=== PATIENT | male | born 1945 | race Caucasian/White ===

== ENCOUNTER 2022-03-10 07:23 | Outpatient (CLI) | payer MEDICARE, SELFPAY ==
--- NOTE | ~2022-03-10 | US_ITS ---
EXAMINATION: US aorta [facility] DATE: 03/10/2022 07:58 INDICATION: Abdominal aortic aneurysm screening, history of hypertension, obesity, hypercholesterolem ia, and prior tobacco use TECHNIQUE: Grayscale, color Doppler, and pulsed Doppler images of the aorta and common iliac arteries were obtained. COMPARISON: None. 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 IMPRESSION: 1. 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 Reviewed, dictated and finalized at location A.
== END 2022-03-10 07:24 | disposition home or self-care (01) ==
PROVIDERS: PCP Family Medicine; Visit Provider Family Medicine
DX: Z13.6 Encounter for screening for cardiovascular disorders (principal); I71.4 Abdominal aortic aneurysm, without rupture
CPT/HCPCS: 76706

== ENCOUNTER 2022-04-14 13:28 | Outpatient (CLI) | payer MEDICARE, SELFPAY ==
--- NOTE | ~2022-04-14 | CT_ITS ---
EXAMINATION: CT shoulder RT wo con DATE: 04/14/2022 14:12 INDICATION: Other specified arthropathies. The right rotator cuff arthropathy with right shoulder curt n. TECHNIQUE: High resolution computed tomography (CT) of the right shoulder was performed without intra venous contrast. Additional sagittal and coronal reconstructions were performed. Automated exposure c ontrol and iterative reconstruction technique were employed. The dose-length product was 497.21 mGy-c m. COMPARISON: Right shoulder radiographs dated 02/17/2022 FINDINGS: Bone alignment is normal. No fracture. Advanced right glenohumeral osteoarthritis with extensive bone -on-bone apposition with remodeling of the articular cortices and prominent subarticular cystic jay es. There is osteolysis with loss of bone stock at the posterior glenoid resulting in approximately 1 0 degrees secondary glenoid retroversion. Mild right acromioclavicular osteoarthritis. No joint effus ion at the right shoulder. There is curvilinear calcification consistent with calcific tendinitis mendez ng the bursal surface of the distal supraspinatus and infraspinatus tendons and along the articular s katherine of the inferior subscapularis tendon. Narrowing of the subacromial space which measures approxima tely 1.5 mm between the apex of the humeral head and the undersurface of the acromion in the region o f the conjoined portion of the supraspinatus and infraspinatus tendons consistent with at least parti al tear. This likely chronic as there is mild to moderate fatty atrophy of the supraspinatus and infr aspinatus muscle bellies. Visualized portion of the right lung are clear. No pathologically enlarged lymphadenopathy at the right axillary visualized portions of the mediastinum and right hilum. Severe thoracic and lower cervical spondylosis. IMPRESSION: 1. Advanced right glenohumeral osteoarthritis. 2. Rotator cuff calcific tendinitis and at least partial tear with significant narrowing of the subac romial space and region of the conjoined supraspinatus and infraspinatus tendons. Reviewed, dictated and finalized at location A. IMPRESSION: 1. Advanced right glenohumeral osteoarthritis. 2. Rotator cuff calcific tendinitis and at least partial tear with significant narrowing of the subacromial space and region of the conjoined supraspinatus an d infraspinatus tendons.
== END 2022-04-14 13:29 | disposition home or self-care (01) ==
PROVIDERS: PCP Family Medicine; Visit Provider Orthopaedic Surgery
DX: M19.011 Primary osteoarthritis, right shoulder (principal); M75.31 Calcific tendinitis of right shoulder
CPT/HCPCS: 73200

== ENCOUNTER 2022-04-17 08:45 | Outpatient (CLI) | payer MEDICARE, SELFPAY ==
--- NOTE | 2022-04-17 09:49 | ECG_ITS ---
Measurements Intervals [place] Rate: 47 P: [place]: 0 QRS: -64 QRSD: 158 T: -4 QT: 443 QTc: 392 Interpretive Statements SINUS BRADYCARDIA WITH OCCASIONAL PREMATURE SUPRAVENTRICULAR ECTOPIC BEATS MARKED LEFT AXIS DEVIATION [QRS AXIS < -30] RIGHT BUNDLE BRANCH BLOCK [120+ ms QRS DURATION, UPRIGHT V1, 40+ ms S IN I/aVL/V4/V5/V6] NO PREVIOUS ECG AVAILABLE FOR COMPARISON Electronically Signed On 04-17-2022 11:19:57 CDT by Nusrat Jaramillo MD
[2022-04-17 10:09] LABS: Basophils Absolute Auto 0.1 K/mm3 (0.0-0.1); Basophils Percent Auto 0.9 % (0.2-1.2); Eosinophils Absolute Auto 0.5 K/mm3 (0-0.3); Hematocrit 41.1 % (42.0-52.0); Hemoglobin 12.9 g/dL (14.0-18.0); Immature Granulocyte Absolute 0.03 K/mm3 (0.00-0.031); Immature Granulocyte Percent A 0.4 % (0-0.5); Lymphocytes Absolute Auto 1.34 K/mm3 (0.9-3.2); Lymphocytes Percent Auto 17.1 % (18.3-44.2); Mean Corpuscular HGB Conc 31.4 g/dl (32-36); Mean Corpuscular Hemoglobin 30.1 pg (26-34); Mean Corpuscular Volume 95.8 fl (80-100); Mean Platelet Volume 10.7 fl (7.4-10.4); Monocytes Absolute Auto 0.8 K/mm3 (0.1-0.6); Monocytes Percent Auto 9.8 % (2.6-8.5); Neutrophils Absolute Auto 5.2 K/mm3 (1.3-6.7); Neutrophils Percent Auto 65.8 % (45.5-73.1); Platelet Count Result 163 k/mm3 (150-375); Red Blood Count 4.29 M/mm3 (4.6-6.20); Red Cell Distribution Width 13.6 % (11.5-14.5); White Blood Count 7.9 K/mm3 (4.5-10.0)
[2022-04-17 10:23] LABS: Anion Gap 4 mmol/L (8-16); Blood Urea Nitrogen 28 mg/dL (9-20); Calcium 8.7 mg/dL (8.4-10.2); Carbon Dioxide 29 mmol/L (22-30); Chloride 104 mmol/L (98-107); Estimated Glomerular Filt Rate > 60; Glucose 91 mg/dL (65-110); Sodium 137 mmol/L (137-145)
== END 2022-04-17 08:46 | disposition home or self-care (01) ==
LOC: ANHSURGERY 08:50
PROVIDERS: Anesthesiology; PCP Family Medicine; Visit Provider Orthopaedic Surgery
DX: M12.811 Other specific arthropathies, not elsewhere classified, right shoulder (principal); I10 Essential (primary) hypertension; Z01.818 Encounter for other preprocedural examination; I45.10 Unspecified right bundle-branch block
CPT/HCPCS: 36415; 80048; 85025; 87081; 93005

== ENCOUNTER 2022-05-13 00:02 | Day surgery (SDC) | payer MEDICARE, SELFPAY ==
[2022-04-17 09:07] VITALS: BP 133/76; PULSE 50; RESP 16; TEMP 36.3; O2SAT 95; BMI 39.3
--- NOTE | 2022-04-17 09:19 | PC.NURSE ---
Report to the Outpatient Waiting Room, entrance under the green pavilion located off [facility], at time __9:30AM on date __05/13/22 . OR Time: ___11:30AM . - You and your visitor will be asked a series of questions to screen for COVID 19 for your protection. - Only one visitor is allowed at this time. - The patient visitor is requested to leave or wait in car when not with patient. - A mask is required within the hospital. Patients may have clear liquids (water, carbonated beverages, clear teas, apple juice) until 3 hours prior to surgery with a maximum of 20 ounces. - No food from midnight until time of surgery - Infants may have breast milk until 4 hours before surgery, infant formula 6 hours prior to surgery. - Children will be allowed to drink immediately following surgery. If applicable, please bring a bottle or sippy cup to assist with drinking. Juice, water, soda, and popsicles are readily available. For infants on formula, please bring formula the day of surgery. Pacifiers are allowed. Take the following medications with a SIP of water the morning of surgery: __LEVOTHYROXINE, METOPROLOL, TRAMADOL Medications to discontinue per physician _HOLD ALL VITAMINS/SUPPLEMENTS, MELOXICAM, AND ASPIRIN 7 DAYS PRE-OP Date to take last dose____05/06/22 Please no make-up, nail bengali, hairspray, perfume, deodorant, or body powder the day of surgery. No jewelry (including any body piercings) or valuables the day of surgery, leave them at home. Please take a shower or bath the night before, or the morning of, surgery with an antibacterial soap. Wear comfortable, loose fitting clothing. Children are encouraged to wear pajamas. - Jewelry must be removed prior to entering the operating room. Rings and piercings that are not removed may be cut off. - The hospital will not accept responsibility for valuables. - Please leave all valuables, including medications, at home the day of surgery. If you are going home after surgery, a licensed truck driver instructor must drive you home. - NO public transportation without another adult. - We recommend that an adult stay with you for 24 hours following discharge. - We also recommend that you do not drive, make important decision, drink alcoholic beverages, or take any drugs that were not prescribed by your health care provider for at least 24 hours after your discharge time. For Pediatric surgeries, we recommend two adults accompany the child home (only one inside the building at this time). Follow any additional instructions given to you from your surgeon. If you or anyone in your household have experienced Covid symptoms in the past week, please notify your surgeon or the nurse liaison at the phone number below for possible testing. Telephone instructions given to __PATIENT & WIFE and asked if any additional questions and then verbalized understanding. Patient advised to call surgeon office or pre surgery nurse liaison [phone] if any additional questions.
--- NOTE | 2022-05-12 15:06 | WPDANESEPPF ---
Anes - Initial Pre Proc Eval Procedure: Operation Date: 05/13/22 08:30 Proposed Procedures p Right Reverse Total Shoulder Arthroplasty - Toney Su MD Date/Time: 05/12/22 15:06 Surgeon: Toney Su MD Pre Op Diagnosis: Rt Rot Cuff Arthropathy Patient Data Age: 77 Gender: M Height: 1.7 m Weight: 114 kg Last Vital Signs Temp 36.3 C L 04/17/22 09:07 Pulse 50 L 04/17/22 09:07 Resp 16 04/17/22 09:07 BP 133/76 04/17/22 09:07 Pulse Ox 95 04/17/22 09:07 O2 Del Method Room Air 04/17/22 09:07 Allergies Allergy/AdvReac Type Severity Reaction Status Date / Time No Known Allergies Allergy Unknown Verified 04/17/22 08:57 Home Medications Medication Instructions Recorded Confirmed Type atorvastatin 40 mg tablet 40 mg PO DAILY #90 tabs 11/04/21 04/17/22 Rx calcium carbonate 200 mg calcium 1,000 mg PO DAILY 02/17/22 04/17/22 History (500 mg) chewable tablet (Tums) finasteride 5 mg tablet 5 mg PO DAILY 02/17/22 04/17/22 History vitamin A-vit C-vit E-zinc-Cu 1 tablet PO DAILY 02/17/22 04/17/22 History tablet aspirin 81 mg tablet,delayed 81 mg PO DAILY 04/17/22 04/17/22 History release (Adult Low Dose Aspirin) hydrochlorothiazide 25 mg tablet 25 mg PO QAM 04/17/22 04/17/22 History levothyroxine 100 mcg tablet 100 mcg PO QAM 04/17/22 04/17/22 History lisinopril 10 mg tablet 10 mg PO QAM 04/17/22 04/17/22 History meloxicam 15 mg tablet 15 mg PO QAM 04/17/22 04/17/22 History metoprolol succinate 25 mg 25 mg PO QAM 04/17/22 04/17/22 History tablet,extended release 24 hr tramadol 50 mg tablet 50 mg PO BID 04/17/22 04/17/22 History Patient hx anesthesia problems: none Family hx anesthesia problems: none Results Review: All pre-operative results and documents have been reviewed as part of the pre-operative evaluation. [facility] Past Medical History Medical History (Updated 05/12/22 @ 15:07 by Marvel Cordova DO) Acquired hypothyroidism Benign prostatic hyperplasia with lower urinary tract symptoms Chronic, continuous use of opioids tramadol 20 years Essential hypertension Hyperlipidemia Left ear impacted cerumen Obesity Surgical History Surgical History H/O knee surgery both knees 2006 H/O shoulder surgery right shoulder 2015 History of hip surgery right hip 2010 Previous back surgery 2018 Family History Family History Mother Hypertension Father Carcinoma of colon Social History Social History Smoking packs per day: 1 Smoking cigarettes per day: 20.0 Years smoked: 10 Smoking pack-years: 10.00 Smoking status: Former smoker Tobacco type: cigarettes Second hand tobacco smoke exposure: Yes Smoking end date: 05/02/83 Alcohol intake: current Drinks per week: 0 Alcohol use details: FEW DRINKS/YEAR Substance use: never Substance use type: crack/cocaine Living arrangements: with family Additional living arrangements comments: Gender identity (if verbalized by the patient): Male Spiritual care concerns: No Anes - Eval Final PreProcedure Day of Procedure 05/12/22 15:06 Patient weight: obese Heart: regular rate and rhythm Lungs: clear to auscultation Airway: Mallampati scale class II Neurological: alert and oriented Last oral intake: >/= 8 hours ASA classification: III Emergent: no Anesthetic plan: proceed Anesthesia type and monitoring: general ETT and standard monitoring Results Review: All pre-operative results and documents have been reviewed as part of the pre-operative evaluation. Informed Consent: The patient's anesthetic plan and its attendant risks and benefits were discussed with the patient/family/POA. Questions were solicited and answers provided to the satisfaction of the patient/family/POA.
[2022-05-13] VITALS (14 sets, daily range): BP systolic 94–131; BP diastolic 50–77; PULSE 49–64; RESP 12–18; TEMP 36.1–36.7; O2SAT 93–100
--- NOTE | ~2022-05-13 | XR_ITS ---
XR shoulder RT min 2V DATE: 05/13/2022 11:49 INDICATION: Reverse right total shoulder TECHNIQUE: Postoperative portable AP and Neer views COMPARISON: 04/14/2022 CT right shoulder / right shoulder FINDINGS: Status post right reversed, glenohumeral arthroplasty, with normal alignment. No fracture o r dislocation is detected. Widening of the right acromioclavicular joint since 02/17/2022; recommend clinical correlation. Degenerative disc disease and uncovertebral joint spurring in the lower cervical spine. IMPRESSION: Reverse right glenohumeral shoulder arthroplasty Reviewed, dictated and finalized at location A.
[2022-05-13] MEDS: LACTATED RINGERS 1,000 ML 30 ML IV CONT ×2 (06:50→11:40)
[2022-05-13] MEDS: ACETAMINOPHEN 500 MG TABLET 1000 MG PO (06:58)
[2022-05-13] MEDS: TRANEXAMIC ACID 1,000MG/ISO100 1,000 MG/100 ML BAG 200 MG IVPB (06:58)
--- NOTE | 2022-05-13 08:13 | WPDHPUPDATE1 ---
History and Physical Update Update Date/Time: 05/13/22 08:13 History and Physical has been reviewed, including an updated exam of the patient. There are NO changes in the patient's condition. Risks, benefits, and alternatives have been discussed and questions answered. Patient agrees to proceed with procedure.
--- NOTE | 2022-05-13 08:20 | WPDANESPNB ---
Anes - Peripheral Nerve Block Date/Time: 05/13/22 08:20 I have discussed with the patient/family/POA the placement of a peripheral nerve block for post-operative pain management, including associated risks, benefits, complications, and side effects. Alternative methods of post-operative analgesia were detailed. Questions were solicited and answers provided to the satisfaction of the patient/family/POA. Time-Out: A pre-procedural Time-Out was completed immediately before starting the procedure and confirmed: Patient Identification, Site, Procedure, Patient Position and the Availability of Requisite Equipment. Clinical Indications: Acute post-operative pain management requested by the operative surgeon. Nerve Block Insertion Note Anes-nerve block: interscalene right Patient position: supine Skin prep: chlorhexidine Needle: 22 gauge, stimulating, insulated echogenic needle. Needle length: 50 mm Technique: ultrasound Injectate: bupivacaine 0.5% with epi 5 mcg/ml (30cc- no epi) Observations: tolerated well Complications: none Procedure start time:: 813 Procedure end time:: 817
[2022-05-13] MEDS: ceFAZolin 2 GM/D5W 50 ML 2 GM/50 ML BAG IVPB ×3 (08:35→23:45)
[2022-05-13] MEDS: VANCOMYCIN HCL 1,000 MG VIAL 1000 MG TOPICAL (09:19)
--- NOTE | 2022-05-13 13:12 | PC.NURSE ---
This patient, Jaxon Moss, was admitted to Medical Room 251-01. Patient/family oriented to hospital policies and general routines including ID bracelet, bed and alarms, visiting hours, pain management, procedures, bathroom and other care routines, personal items, smoking policy, room service/diet, and visiting hours. Information on how to activate the Rapid Response Team has been discussed. Patient/Family are encouraged to report perceived risks to care and to ask questions if they do not understand what they are told or what they should do.
[2022-05-13] MEDS: SODIUM CHLORIDE 0.9% IV 1,000 ML 125 ML IV CONT (13:35)
--- NOTE | 2022-05-13 15:36 | W.PM.PROC2 ---
Procedure Note - Detailed Date of Procedure 05/13/22 Pre-op Diagnosis Right shoulder rotator cuff arthropathy Post-op Diagnosis Same Procedure Performed Reverse total shoulder arthroplasty, right. Surgeon Toney Su MD Anesthesia General and Regional (Interscalene block.) Findings Extensive disease with erosion of the glenoid medially and posteriorly approximately 18?. Significant stiffness and scarring from previous open rotator cuff surgery. Subdeltoid adhesions were extensive. Bone quality was excellent. Posterior capsule excised. Calcified glenoid (particularly anterior) removed. Description of Procedure The patient was given an interscalene block in the preoperative area. Preoperative antibiotics were given. The patient was transferred to the operating room and a general anesthetic was administered. The beach chair position was used at 45 degrees. All bony prominences were padded. The head was carefully stabilized on the [facility] school cafeteria head cook. A sterile prep and drape was performed in the usual manner with ChloraPrep. A longitudinal incision was created at the anterior shoulder just lateral to the deltopectoral interval. Hydrogen peroxide was placed on the incision and then rinsed after one minute. Careful dissection was performed to expose the interval and protect the cephalic vein. The vein was retracted medially. The upper border of the pectoralis was released. Anterior circumflex vessel branches were suture ligated. The biceps was tenodesed. A subscapularis tenotomy was performed. The inferior capsule was released, exposing the humeral head. Osteophytes were removed. Care was taken to stay on bone to protect the axillary nerve. The anatomic head cut was taken with the oscillating saw. The guide pin was placed, central drilling performed, and the broach trial inserted. The neck anteversion and inclination were carefully assessed. The cut protector was placed, and attention was turned to the glenoid. Retractors were placed. Releases were carried out for exposure. The subscapularis was mobilized, the inferior capsule and long head of triceps released, and the superior and middle glenohumeral ligaments released as well. Labral tissue was resected as needed. The sizing template was used to assess the baseplate position low on the glenoid. A guide pin was placed. Minimal reaming was used to accomplish a flat surface without violating the subchondral bone. Version was corrected according to preoperative templating. The 10 degree augment was used. The boss was drilled, and the real component was impacted into position. Supplemental screws were placed centrally, superiorly, and inferiorly. The glenosphere was impacted into the taper. The proximal humerus was reamed for the inset component. The humeral components were trialed. The real humeral stem, tray, and insert were impacted into position. The shoulder was copiously irrigated periodically with pulsatile lavage. The shoulder was reduced and stability confirmed. 1 gram of Vancomycin powder was placed in the joint. The biceps tenodesis was incorporated with the pectoralis tendon repair. The deltopectoral space was reapproximated with number 1 Vicryl. The remaining tissue was closed with 0 Quill and 2-0 Quill running suture and steri-strips. A sterile silver occlusive dressing and shoulder immobilizer were placed. The patient was transferred to the recovery room. [employer] Should[employer] reverse TSA size 1 stem. +0 polyethylene insert. 10 degree, +3 baseplate. 36 +3 mm glenosphere. Estimated Blood Loss -200.0 Drains No Pathology None sent Complications No immediate complications Condition Stable Disposition PACU [facility] Billing Surgery - Charge Forward: Surgery Billing
[2022-05-13] MEDS: SENNA/DOCUSATE SODIUM TABLET 2 TAB PO (17:25)
[2022-05-13] MEDS: oxyCODONE HCL (*CRX) 5 MG TAB IR PO (21:57)
[2022-05-14 01:27] VITALS: BP 108/50; PULSE 68; RESP 20; TEMP 36.6; O2SAT 93
[2022-05-14 05:16] VITALS: BP 123/48; PULSE 69; RESP 16; TEMP 36.8; O2SAT 100
[2022-05-14] MEDS: LEVOTHYROXINE SODIUM 100 MCG TABLET PO (05:57)
[2022-05-14] MEDS: ceFAZolin 2 GM/D5W 50 ML 2 GM/50 ML BAG IVPB (07:57)
[2022-05-14] MEDS: ASPIRIN 81 MG ENTERIC TABLET PO (07:57)
[2022-05-14] MEDS: SENNA/DOCUSATE SODIUM TABLET 2 TAB PO (07:58)
[2022-05-14] MEDS: FINASTERIDE 5 MG TABLET PO (07:58)
[2022-05-14] MEDS: ATORVASTATIN 40 MG TABLET PO (07:58)
[2022-05-14] MEDS: hydroCHLOROthiazide 25 MG TABLET PO (07:58)
[2022-05-14] MEDS: lisinopriL 10 MG TABLET PO (07:58)
[2022-05-14] MEDS: MELOXICAM 7.5 MG TABLET 15 MG PO (07:58)
[2022-05-14] MEDS: CALCIUM CARBONATE (TUMS) 500 MG (200 MG ELEMENTAL) 400 MG PO (07:58)
[2022-05-14 07:59] VITALS: PULSE 63
[2022-05-14] MEDS: METOPROLOL SUCCINATE EXT REL 25 MG TABCR PO (07:59)
[2022-05-14] MEDS: polyethylene glycoL 3350 17 GM POWD.PACK PO (08:00)
--- NOTE | 2022-05-14 08:18 | PM.DS ---
DS: Admitting Diagnosis Discharge Date 05/14/22 Admitting Diagnosis Rotator cuff arthropathy. DS: Discharge Diagnosis Discharge Diagnosis (1) Status post reverse total arthroplasty of right shoulder: Code(s): Z96.611 - Presence of right artificial shoulder joint Status: Acute Plan Postop day 1: Right reverse total shoulder arthroplasty. Patient tolerated procedure well. No complications. Pain manageable with pain medication. No numbness or tingling. We had a lengthy discussion regarding postoperative wound care, limitations, expectations, and exercises. Patient shows good understanding. He has had initial physical therapy and is tolerating it well. DVT prophylaxis: 81 mg baby aspirin b.i.d. for 14 days. Pain medication: Percocet. Continue Meloxicam. Patient has followup appointment with Dr. Su in 3 weeks. DS: Summary Hospital Course Hospital Course: Patient tolerated procedure well. Has had initial PT and OT. Status at Discharge Functional status at discharge: independent ambulation Overall status at discharge: patient is progressing back to baseline Time Spent with Patient Time attestation: Total time spent providing and/or coordinating discharge services: Exam Narrative: Overweight 77 y/o male. Resting comfortably in chair. Wearing sling. Dressing dry and intact with no drainage. Moderate swelling. Moderate ecchymosis. No erythema. No hematoma. Range of motion limited due to pain. Neurologic status intact. No varicosities. Distal pulses palpable. DS: Data Data Completed and Pending Labs on day of discharge: Labs from last 24 hours 05/13/22 06:46 Blood Type O Positive Antibody Screen Negative Discharge Plan Discharge Patient Disposition: Home, Self-Care Discharge Instructions: See green instruction sheets Stand Alone Forms: General Discharge Instructions Follow-up/Referrals: Juani Galvan PA [Physician Graduate Student Instructor] - Discharge Medications: New oxycodone-acetaminophen 5-325 mg tablet 1 - 2 tablet PO Q4-6H MDD 6 PRN (Reason: pain) Qty: 30 0RF Continued finasteride 5 mg tablet 5 mg PO DAILY vitamin A-vit C-vit E-zinc-Cu Tablet 1 tablet PO DAILY calcium carbonate [Tums] 200 mg calcium (500 mg) tablet,chewable 1,000 mg PO DAILY aspirin [Adult Low Dose Aspirin] 81 mg Tablet,Delayed Release (Dr/Ec) 81 mg PO DAILY meloxicam 15 mg tablet 15 mg PO QAM tramadol 50 mg tablet 50 mg PO BID levothyroxine 100 mcg tablet 100 mcg PO QAM lisinopril 10 mg tablet 10 mg PO QAM hydrochlorothiazide 25 mg tablet 25 mg PO QAM metoprolol succinate 25 mg tablet extended release 24 hr 25 mg PO QAM atorvastatin 40 mg tablet 40 mg PO DAILY Qty: 90 2RF
--- NOTE | 2022-05-14 08:52 | PCPTNOTE ---
Attempted therapy treatment, Pt was with OT. Will attempt again.
--- NOTE | 2022-05-14 09:05 | WPDANESPN ---
Anes - Prog Note Post-Op Date/Time: 05/14/22 09:05 Vital Signs: Last Vital Signs Temp 36.8 C 05/14/22 05:16 Pulse 63 05/14/22 07:59 Resp 16 05/14/22 05:16 BP 123/48 L 05/14/22 05:16 Pulse Ox 100 05/14/22 05:16 O2 Del Method Nasal Cannula 05/13/22 22:00 O2 Flow Rate 1 05/13/22 22:00 Pain Score (VAS): 0 I/O: Intake & Output 05/13/22 05/14/22 05/14/22 23:59 07:59 15:59 Intake Total 1610 500 Balance 1610 500 Patient Feedback: Patient satisfied with anesthetic care.
[2022-05-14 10:00] VITALS: BP 102/51; PULSE 55; RESP 16; TEMP 37.1; O2SAT 93
[2022-05-14] MEDS: oxyCODONE HCL (*CRX) 5 MG TAB IR PO (10:59)
== END 2022-05-14 12:17 | disposition home or self-care (01) ==
LOC: ANHSURGERY 06:05 → ANH2MED 12:46
PROVIDERS: PCP Family Medicine; Visit Provider Orthopaedic Surgery
PROC: (CPT 23472; principal; 2022-05-13 08:30)
DX: M12.811 Other specific arthropathies, not elsewhere classified, right shoulder (principal); G89.18 Other acute postprocedural pain; I10 Essential (primary) hypertension; E78.5 Hyperlipidemia, unspecified; N40.0 Benign prostatic hyperplasia without lower urinary tract symptoms; E03.9 Hypothyroidism, unspecified; Z79.82 Long term (current) use of aspirin; E66.9 Obesity, unspecified; Z68.39 Body mass index [BMI] 39.0-39.9, adult; Z87.891 Personal history of nicotine dependence
CPT/HCPCS: 23472; 64415; 36415; 73030; 86850; 86900; 86901; 97110; 97116; 97161; 97165; 97530; 97535; A4565; A9270; J0131; J0171; J0690; J1100; J1170; J1885; J2250; J2270; J2370; J2405; J2704; J2710; J2795; J3010; J3370; J7030; J7120

== ENCOUNTER 2022-05-26 11:25 | Outpatient (NON) | payer MEDICARE, SELFPAY ==
[2022-05-26 12:39] LABS: Color Synovial Fluid Red (Colorless); Source Synovial Fluid Synovial fluid
[2022-05-26 12:40] LABS: Appearance Synovial Fluid Turbid (Clear)
[2022-05-26 13:34] LABS: Nucleated Cell Synovial Fluid 1631 /uL (0-200)
[2022-05-26 13:42] LABS: Lymphocytes Synovial Fluid 25 %
[2022-05-26 13:43] LABS: Monocytes Synovial Fluid 2 %; Neutrophils Synovial Fluid 73 % (0-25)
== END 2022-05-26 11:26 | disposition home or self-care (01) ==
PROVIDERS: PCP Family Medicine; Visit Provider Orthopaedic Surgery
DX: T14.8XXA Other injury of unspecified body region, initial encounter (principal)
CPT/HCPCS: 87070; 87075; 87205; 89051

== ENCOUNTER 2022-05-27 10:59 | Inpatient (IN) | payer MEDICARE, SELFPAY ==
[2022-05-27] VITALS (25 sets, daily range): BP systolic 86–129; BP diastolic 51–77; PULSE 68–103; RESP 16–22; TEMP 36.3–36.8; O2SAT 94–100; BMI 38.4
--- NOTE | ~2022-05-27 | XR_ITS ---
EXAMINATION: XR chest 1V portable Exam Date/Time: 05/27/2022 18:30 CDT HISTORY: shortness of breath Comparison: 08/06/2009. RESULT: Lines, tubes, and devices: Partially visualized right shoulder arthroplasty. Lungs and pleura: Minimal linear left basilar opacities with left hemidiaphragm elevation. Cardiomediastinal silhouette: Stable. Other: No acute osseous or upper abdominal finding. IMPRESSION: Left hemidiaphragm elevation and left basilar atelectasis. Infection not excluded. Reviewed, dictated and finalized at location K. IMPRESSION: Left hemidiaphragm elevation and left basilar atelectasis. Infection not exclud ed.
[2022-05-27 11:32] LABS: Basophils Absolute Auto 0.1 K/mm3 (0.0-0.1); Basophils Percent Auto 0.3 % (0.2-1.2); Eosinophils Absolute Auto 0.1 K/mm3 (0-0.3); Eosinophils Percent Auto 0.5 % (0-4.4); Hematocrit 27.3 % (42.0-52.0); Hemoglobin 8.8 g/dL (14.0-18.0); Immature Granulocyte Absolute 0.16 K/mm3 (0.00-0.031); Immature Granulocyte Percent A 0.8 % (0-0.5); Lymphocytes Absolute Auto 1.35 K/mm3 (0.9-3.2); Lymphocytes Percent Auto 6.9 % (18.3-44.2); Mean Corpuscular HGB Conc 32.2 g/dl (32-36); Mean Corpuscular Hemoglobin 29.9 pg (26-34); Mean Corpuscular Volume 92.9 fl (80-100); Mean Platelet Volume 9.8 fl (7.4-10.4); Monocytes Percent Auto 5.2 % (2.6-8.5); Neutrophils Percent Auto 86.3 % (45.5-73.1); Platelet Count Result 387 k/mm3 (150-375); Red Blood Count 2.94 M/mm3 (4.6-6.20); Red Cell Distribution Width 13.8 % (11.5-14.5); White Blood Count 19.7 K/mm3 (4.5-10.0)
[2022-05-27 11:42] LABS: INR 1.1; Prothrombin Time 14.1 Seconds (11.1-14.7)
[2022-05-27 11:48] LABS: Alanine Aminotransferase 28 U/L (6-50); Albumin Level 3.6 g/dL (3.5-5.1); Alkaline Phosphatase 71 U/L (38-126); Anion Gap 8 mmol/L (8-16); Aspartate Amino Transferase 27 U/L (17-59); Bilirubin,Total 0.6 mg/dL (0.2-1.3); Blood Urea Nitrogen 61 mg/dL (9-20); Carbon Dioxide 27 mmol/L (22-30); Chloride 99 mmol/L (98-107); Estimated Glomerular Filt Rate 34; Glucose 110 mg/dL (65-110); Sodium 134 mmol/L (137-145)
[2022-05-27] MEDS: SODIUM CHLORIDE 0.9% IV 1,000 ML 999 ML IV CONT (12:13)
--- NOTE | 2022-05-27 13:28 | ED.GIBLEED ---
HPI - GI Bleed General Chief complaint: GI Bleed Stated complaint: blood in stool Time Seen by Provider: 05/27/22 11:13 History of Present Illness HPI Narrative: Patient is a 77-year-old male who presents ER with rectal bleeding. He started having bowel movements that were liquid and bloody at 10:30 PM last night. He is continued to have them every 2 hours. He is not on any blood thinners. He was on some meloxicam which she stopped last week when it was causing abdominal discomfort after his surgery when he was not eating food. He recently had his right shoulder replaced by Dr. Su. No vomiting or coffee-ground emesis. No history of GI bleed in the past. Related Data Home Medications Medication Instructions Recorded Confirmed calcium carbonate 200 mg calcium 1,000 mg PO DAILY 02/17/22 05/26/22 (500 mg) chewable tablet (Tums) finasteride 5 mg tablet 5 mg PO DAILY 02/17/22 05/26/22 vitamin A-vit C-vit E-zinc-Cu 1 tablet PO DAILY 02/17/22 05/26/22 tablet aspirin 81 mg tablet,delayed 81 mg PO DAILY 04/17/22 05/26/22 release (Adult Low Dose Aspirin) hydrochlorothiazide 25 mg tablet 25 mg PO QAM 04/17/22 05/26/22 levothyroxine 100 mcg tablet 100 mcg PO QAM 04/17/22 05/26/22 lisinopril 10 mg tablet 10 mg PO QAM 04/17/22 05/26/22 meloxicam 15 mg tablet 15 mg PO QAM 04/17/22 05/26/22 metoprolol succinate 25 mg 25 mg PO QAM 04/17/22 05/26/22 tablet,extended release 24 hr tramadol 50 mg tablet 50 mg PO BID 04/17/22 05/26/22 Allergies Allergy/AdvReac Type Severity Reaction Status Date / Time No Known Allergies Allergy Verified 05/27/22 12:21 Review of Systems Review of Systems: All systems reviewed & are unremarkable except as noted in HPI and below Constitutional: Constitutional: Denies chills and Denies fever(s) Cardiovascular: Cardiovascular: Denies chest pain and Denies rapid heart rate Respiratory: Respiratory: Denies cough and Denies dyspnea Gastrointestinal: Gastrointestinal: Denies abdominal pain, Reports diarrhea, Denies nausea and Denies vomiting Comments: Rectal bleeding Musculoskeletal: Musculoskeletal: Denies back pain and Reports arthralgias (Post procedure) [facility] Past Medical History Medical History Acquired hypothyroidism Benign prostatic hyperplasia with lower urinary tract symptoms Chronic, continuous use of opioids tramadol 20 years Essential hypertension Family history of colon cancer Hyperlipidemia Left ear impacted cerumen Obesity Orthopedic aftercare for joint replacement Rotator cuff arthropathy of right shoulder Spinal stenosis of lumbar region Surgical History Surgical History H/O knee surgery both knees 2006 H/O shoulder surgery right shoulder 2014 History of hip surgery right hip 2011 Previous back surgery 2018 Status post reverse total arthroplasty of right shoulder Family History Family History Mother Hypertension Father Carcinoma of colon Social History Social History Smoking packs per day: 1 Smoking cigarettes per day: 20.0 Years smoked: 10 Smoking pack-years: 10.00 Smoking status: Former smoker Second hand tobacco smoke exposure: Yes Alcohol intake: current Drinks per week: 0 Alcohol use details: FEW DRINKS/YEAR Substance use: never Substance use type: crack/cocaine Additional living arrangements comments: Gender identity (if verbalized by the patient): Male Spiritual care concerns: No Exam Narrative: GENERAL: Well-appearing, well-nourished, and in no acute distress. HEAD: Normocephalic, atraumatic. ENT: Mucous membranes moist. CHEST: Clear to auscultation. No respiratory distress. HEART: Regular rate and rhythm. Normal peripheral pulses. ABDOMEN: Soft, nontender, n
[2022-05-27] MEDS: PANTOPRAZOLE SODIUM IV 40 MG VIAL IV PUSH (13:54)
[2022-05-27 14:51] LABS: SARS-CoV-2 RNA PCR Negative
[2022-05-27] MEDS: SODIUM CHLORIDE 0.9% IV 1,000 ML 125 ML IV CONT (15:11)
[2022-05-27 15:26] LABS: Hematocrit 25.4 % (42.0-52.0); Hemoglobin 8.2 g/dL (14.0-18.0)
[2022-05-27 15:41] LABS: Transferrin 185 mg/dL (206-381)
--- NOTE | 2022-05-27 16:15 | PM.IMHP ---
H&P: HPI History of Present Illness Date/Time: 05/27/22 16:15 Chief Complaint: Melana Narrative: Patient is a 77 year old male with a past medical history of HTN, HLD, BPH who presented to the ed with complaints of melena. Patient stated that this all started at 2230 last night. he stated that he felt like he was going to have some diarrhea, and when he went to sit on the commode that it was all blood. He also stated that this continued every two hours up till 0500. He stated at that point, when he stood up he got very lightheaded and dizzy. He has also been having night sweats and shortness of breath with exertion. He also developed a cough on about a week ago and stated that he went to his doctor and in taken Tessosaon Rusty. He also had a surgery of a shoulder replacement 2 weeks ago. He stated that he started to notice a hematoma and went back to Dr. Ma who put him on Bactrim. Patient stated he had just gotten taking course of Bactrim but then was put on another 10 day of course of Bactrim he does say that he does drink a full glass of water when he takes his Bactrim. He denies any nausea, vomiting, chest pain, chills, abdominal pain. He did state that he feels like his abdomen is always wheezing and got very nauseated this afternoon. His lungs do sound a bit coarse and rhonchus. WBCs 19.5 today. Renal function is 61/1.90. Baseline appears to be right around 1. Will discontinue the Bactrim at this time due to renal function. Patient did state that he does get stuff up with his cough however is clear. Hemoglobin and hematocrit are currently 8.8/27.[address] Cotter has been consulted. Patient currently denies any pain he denies any visual changes, hearing changes, fevers or chills. Patient is being admitted to the hospitalist service as observation. Review of Systems Review of Systems: All systems reviewed & are unremarkable except as noted in HPI and below PMFSH Past Medical History Medical History Acquired hypothyroidism Benign prostatic hyperplasia with lower urinary tract symptoms Chronic, continuous use of opioids tramadol 20 years Essential hypertension Family history of colon cancer Hyperlipidemia Left ear impacted cerumen Obesity Orthopedic aftercare for joint replacement Rotator cuff arthropathy of right shoulder Spinal stenosis of lumbar region Surgical History Surgical History H/O knee surgery both knees 2006 H/O shoulder surgery right shoulder 2015 History of hip surgery right hip 2010 Previous back surgery 2018 Status post reverse total arthroplasty of right shoulder Family History Family History Mother Hypertension Father Carcinoma of colon Social History Social History Social History: Patient lives at home with his Maricel who will be his surrogate. He has 2 kids and 4 grandchildren and 1 great grandchildren. He has 2 dogs and 1 cat. 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
[2022-05-27 16:26] LABS: Iron 66 ug/dL (49-181)
[2022-05-27 16:37] LABS: Percent Iron Saturation 23 % (20-50)
[2022-05-27 16:41] LABS: Folic Acid 7.9 ng/mL (2.76->20)
[2022-05-27 17:00] LABS: Thyroid Stimulating Hormone Reflex 0.664 uIU/mL (0.465-4.68)
[2022-05-27 20:08] LABS: Hematocrit 24.1 % (42.0-52.0); Hemoglobin 7.7 g/dL (14.0-18.0)
[2022-05-27] MEDS: DOXYCYCLINE HYCLATE 100 MG TABLET PO (20:48)
[2022-05-27] MEDS: FINASTERIDE 5 MG TABLET PO (20:48)
[2022-05-27] MEDS: ATORVASTATIN 40 MG TABLET PO (20:48)
[2022-05-27] MEDS: guaiFENesin 200 MG/10 ML UDC PO (21:18)
[2022-05-28] VITALS (20 sets, daily range): BP systolic 104–146; BP diastolic 49–95; PULSE 62–88; RESP 16–25; TEMP 36–36.7; O2SAT 92–100
[2022-05-28] MEDS: SODIUM CHLORIDE 0.9% IV 1,000 ML 125 ML IV CONT ×3 (00:08→16:52)
[2022-05-28 02:39] LABS: Basophils Absolute Auto 0.1 K/mm3 (0.0-0.1); Basophils Percent Auto 0.5 % (0.2-1.2); Eosinophils Absolute Auto 0.3 K/mm3 (0-0.3); Eosinophils Percent Auto 2.5 % (0-4.4); Hematocrit 22.4 % (42.0-52.0); Hemoglobin 7.1 g/dL (14.0-18.0); Immature Granulocyte Absolute 0.09 K/mm3 (0.00-0.031); Immature Granulocyte Percent A 0.7 % (0-0.5); Lymphocytes Absolute Auto 1.37 K/mm3 (0.9-3.2); Lymphocytes Percent Auto 10.8 % (18.3-44.2); Mean Corpuscular HGB Conc 31.7 g/dl (32-36); Mean Corpuscular Volume 94.5 fl (80-100); Mean Platelet Volume 9.9 fl (7.4-10.4); Monocytes Absolute Auto 0.9 K/mm3 (0.1-0.6); Neutrophils Absolute Auto 9.9 K/mm3 (1.3-6.7); Neutrophils Percent Auto 78.5 % (45.5-73.1); Platelet Count Result 292 k/mm3 (150-375); Red Blood Count 2.37 M/mm3 (4.6-6.20); White Blood Count 12.6 K/mm3 (4.5-10.0)
[2022-05-28 03:12] LABS: Alanine Aminotransferase 23 U/L (6-50); Albumin Level 2.8 g/dL (3.5-5.1); Alkaline Phosphatase 53 U/L (38-126); Anion Gap 6 mmol/L (8-16); Aspartate Amino Transferase 26 U/L (17-59); Bilirubin,Total 0.6 mg/dL (0.2-1.3); Blood Urea Nitrogen 57 mg/dL (9-20); Calcium 8.4 mg/dL (8.4-10.2); Carbon Dioxide 25 mmol/L (22-30); Chloride 101 mmol/L (98-107); Estimated CRCL calculation 39 ml/min; Estimated Glomerular Filt Rate 39; Glucose 101 mg/dL (65-110); Magnesium 1.7 mg/dL (1.6-2.3); Potassium 4.7 mmol/L (3.4-5.0); Sodium 132 mmol/L (137-145)
[2022-05-28 07:46] LABS: Hematocrit 23.7 % (42.0-52.0); Hemoglobin 7.5 g/dL (14.0-18.0)
[2022-05-28] MEDS: SODIUM CHLORIDE 0.9% IV 250 ML 30 ML IV CONT (08:53)
[2022-05-28] MEDS: DOXYCYCLINE HYCLATE 100 MG TABLET PO ×2 (08:54→20:10)
[2022-05-28] MEDS: METOPROLOL SUCCINATE EXT REL 25 MG TABCR PO (08:54)
--- NOTE | 2022-05-28 11:00 | PM.IMPN ---
Progress Note: A&P Assessment and Plan (1) GI bleed: Code(s): K92.2 - Gastrointestinal hemorrhage, unspecified Status: Acute Assessment and Plan: Noted melana H/H 7.1/22.4 today, down from 12.9/41.1 on 04/17/22 Continue to trend labs Anemia labs iron 66, TIBC 284,% saturation 23 transferrin 185, ferritin 155, B12 354, folate 7.9 No supplementation indicated Transfuse as indicated Protonix drip Continue trend H/H GI consulted thank you for your help Transfuse one unit today 05/28/22 (2) JOE (acute kidney injury): Code(s): N17.9 - Acute kidney failure, unspecified Status: Acute Assessment and Plan: BUN/Cr elevated at 57/1.70 1L of NS given in the ED Continuous fluids at 125ml/hr Trend labs Hold lisinopril and HCTZ for now Renal adjust medication Avoid nephrotoxic medication Consider consulting nephro if no improvement (3) Effusion of right shoulder joint: Code(s): M25.411 - Effusion, right shoulder Status: Acute Assessment and Plan: Right should arthroplasty noted 2 weeks ago Hematoma development noted at follow up visit yesterday Aspiration of the joint performed and 150cc of bloody drainage noted Fluid on labs revealed turbid red fluid with 93478 RBC, 1631 Nuc, and neutrophils were 73, lymphocytes 25, monocytes 2 Patient was placed on Bactrim, will discontinue due to increased renal failure Start on doxycycline Trend for infection WBC is trending down and is currently 12.6 Blood cultures ordered Shoulder xray from yesterday still pending Gram stain showed moderate WBC seen, no organisms (4) Hyperlipidemia: Code(s): E78.5 - Hyperlipidemia, unspecified Status: Acute Assessment and Plan: Continue home atorvastatin 40mg PO Daily (5) Benign prostatic hyperplasia with lower urinary tract symptoms: Code(s): N40.1 - Benign prostatic hyperplasia with lower urinary tract symptoms Status: Acute Assessment and Plan: Continue home finasteride 5mg PO Daily Bladder scan PRN Trend Urinary output consider urinary catheter if indicated (6) Essential hypertension: Code(s): I10 - Essential (primary) hypertension Status: Acute Assessment and Plan: BP is 143/89 hold lisinopril and HCTZ, due to renal failure Add amlodipine if indicated Trend BP Adjust therapy as indicated (7) Acquired hypothyroidism: Code(s): E03.9 - Hypothyroidism, unspecified Status: Acute Assessment and Plan: Continue home levothyroxine TSH 0.664 Time Spent With Patient Time with patient: Greater than 35 minutes Subjective Date/time seen: 05/28/22 07:04 Interval history: 05/28/22 1100 Patient is doing ok. His color is better today. He did need one more unit of PRBC due to a falling H/H. He did have some diarrhea. he denies any blood, and stated that his stool was just very dark. He denies any chest pain, shortness of breath, weakness, fatigue, nausea, vomiting. 05/27/22? 16:15 Patient is a 77 year old male with a past medical history of HTN, HLD, BPH who presented to the ed with complaints of melena.? Patient stated that this all started at 2230 last night.? he stated that he felt like he was going to have some diarrhea, and when he went to sit on the commode that it was all blood.? He also stated that this continued every two hours up till 0500.? He stated at that point, when he stood up he got very lightheaded and dizzy.? He has also been having night sweats and shortness of breath with exertion.? He also developed a cough on about a week ago and stated that he went to his doctor and in taken Mechelle Ojeda.? He also had a surgery of a shoulder replacement 2 weeks ago.? He stated that he started to notice a hematoma and went back to Dr. Ma who put him on Bactrim.? Patient stated he had just gotten t
--- NOTE | 2022-05-28 11:00 | P.PNIM_ITS ---
Progress Note: A&P Assessment and Plan (1) GI bleed: Code(s): K92.2 - Gastrointestinal hemorrhage, unspecified Status: Acute Assessment and Plan: * Noted melana * H/H 7.1/22.4 today, down from 12.9/41.1 on 04/17/22 * Continue to trend labs * Anemia labs iron 66, TIBC 284,% saturation 23 transferrin 185, ferritin 155, B12 354, folate 7.9 * No supplementation indicated * Transfuse as indicated * Protonix drip * Continue trend H/H * GI consulted thank you for your help * Transfuse one unit today 05/28/22 (2) JOE (acute kidney injury): Code(s): N17.9 - Acute kidney failure, unspecified Status: Acute Assessment and Plan: * BUN/Cr elevated at 57/1.70 * 1L of NS given in the ED * Continuous fluids at 125ml/hr * Trend labs * Hold lisinopril and HCTZ for now * Renal adjust medication * Avoid nephrotoxic medication * Consider consulting nephro if no improvement (3) Effusion of right shoulder joint: Code(s): M25.411 - Effusion, right shoulder Status: Acute Assessment and Plan: * Right should arthroplasty noted 2 weeks ago * Hematoma development noted at follow up visit yesterday * Aspiration of the joint performed and 150cc of bloody drainage noted * Fluid on labs revealed turbid [place] 64457 RBC, 1631 Nuc, and neutrophils were 73, lymphocytes 25, monocytes 2 * Patient was placed on Bactrim, will discontinue due to increased renal failure * Start on doxycycline * Trend for infection * WBC is trending down and is currently 12.6 * Blood cultures ordered * Shoulder xray from yesterday still pending * Gram stain showed moderate WBC seen, no organisms (4) Hyperlipidemia: Code(s): E78.5 - Hyperlipidemia, unspecified Status: Acute Assessment and Plan: * Continue home atorvastatin 40mg PO Daily (5) Benign prostatic hyperplasia with lower urinary tract symptoms: Code(s): N40.1 - Benign prostatic hyperplasia with lower urinary tract symptoms Status: Acute Assessment and Plan: * Continue home finasteride 5mg PO Daily * Bladder scan PRN * Trend Urinary output * consider urinary catheter if indicated (6) Essential hypertension: Code(s): I10 - Essential (primary) hypertension Status: Acute Assessment and Plan: * BP is 143/89 * hold lisinopril and HCTZ, due to renal failure * Add amlodipine if indicated * Trend BP * Adjust therapy as indicated (7) Acquired hypothyroidism: Code(s): E03.9 - Hypothyroidism, unspecified Status: Acute Assessment and Plan: * Continue home levothyroxine * TSH 0.664 Time Spent With Patient Time with patient: Greater than 35 minutes Subjective Date/time seen: 05/28/22 07:04 Interval history: 05/28/22 1100 Patient is doing ok. His color is better today. He did need one more unit of PRBC due to a falling H/H. He did have some diarrhea. he denies any blood, and stated that his stool was just very dark. He denies any chest pain, shortness of breath, weakness, fatigue, nausea, vomiting. 05/27/22? 16:15 Patient is a 77 year old male with a past medical history of HTN, HLD, BPH who presented to the ed with complaints of melena.? Patient stated that this all started at 2230 last night.? he stated that he felt like he was going to have some diarrhea, and
--- NOTE | 2022-05-28 11:12 | WPDANESEPPF ---
Anes - Initial Pre Proc Eval Procedure: Operation Date: 05/28/22 15:30 Proposed Procedures p Esophagogastroduodenoscopy - Valdez Gerardo MD Date/Time: 05/28/22 11:12 Surgeon: Karen Nicolas DO Pre Op Diagnosis: upper gi bleed,heidi Patient Data Age: 77 Gender: M Height: 1.73 m Weight: 114.6 kg Last Vital Signs Temp 36.1 C L 05/28/22 10:11 Pulse 66 05/28/22 10:11 Resp 20 05/28/22 10:11 BP 109/52 L 05/28/22 10:11 Pulse Ox 97 05/28/22 10:41 O2 Del Method Room Air 05/28/22 10:41 Allergies Allergy/AdvReac Type Severity Reaction Status Date / Time No Known Allergies Allergy Verified 05/27/22 16:18 Home Medications Medication Instructions Recorded Confirmed Type calcium carbonate 200 mg calcium 1,000 mg PO DAILY 02/17/22 05/27/22 History (500 mg) chewable tablet (Tums) finasteride 5 mg tablet 5 mg PO HS 02/17/22 05/27/22 History vitamin A-vit C-vit E-zinc-Cu 1 tablet PO DAILY 02/17/22 05/27/22 History tablet aspirin 81 mg tablet,delayed 81 mg PO DAILY 04/17/22 05/27/22 History release (Adult Low Dose Aspirin) hydrochlorothiazide 25 mg tablet 25 mg PO QAM 04/17/22 05/27/22 History levothyroxine 100 mcg tablet 100 mcg PO QAM 04/17/22 05/27/22 History lisinopril 10 mg tablet 10 mg PO QAM 04/17/22 05/27/22 History meloxicam 15 mg tablet 15 mg PO QAM 04/17/22 05/27/22 History metoprolol succinate 25 mg 25 mg PO QAM 04/17/22 05/27/22 History tablet,extended release 24 hr tramadol 50 mg tablet 50 mg PO BID 04/17/22 05/27/22 History oxycodone-acetaminophen 5 mg-325 1 - 2 tablet PO Q4-6H PRN pain #30 05/14/22 05/27/22 Rx mg tablet tabs benzonatate 100 mg capsule 100 mg PO TID PRN cough #30 caps 05/23/22 05/27/22 Rx sulfamethoxazole 800 1 tablet PO Q12H 5 days #60 tabs 05/26/22 05/27/22 Rx mg-trimethoprim 160 mg tablet (Bactrim DS) atorvastatin 40 mg tablet 40 mg PO HS 05/27/22 05/27/22 History Laboratory Tests 05/27/22 05/27/22 05/27/22 11:27 11:27 11:27 WBC 19.7 K/mm3 H K/mm3 (4.5-10.0) RBC 2.94 M/mm3 L M/mm3 (4.6-6.20) Hgb 8.8 g/dL L D g/dL (14.0-18.0) Hct 27.3 % L % (42.0-52.0) MCV 92.9 fl fl (80-100) MCH 29.9 pg pg (26-34) MCHC 32.2 g/dl g/dl (32-36) RDW 13.8 % % (11.5-14.5) Plt Count 387 k/mm3 H D k/mm3 (150-375) MPV 9.8 fl fl (7.4-10.4) Immature Gran % (Auto) 0.8 % H % (0-0.5) Neut % (Auto) 86.3 % H % (45.5-73.1) Lymph % (Auto) 6.9 % L % (18.3-44.2) [place] % (Auto) 5.2 % % (2.6-8.5) Eos % (Auto) 0.5 % % (0-4.4) Baso % (Auto) 0.3 % % (0.2-1.2) Lymph # (Auto) 1.35 K/mm3 K/mm3 (0.9-3.2) [place] # (Auto) 1.0 K/mm3 H K/mm3 (0.1-0.6) Eos # (Auto) 0.1 K/mm3 K/mm3 (0-0.3) Baso # (Auto) 0.1 K/mm3 K/mm3 (0.0-0.1) Abs Immat Gran (auto) 0.16 K/mm3 H K/mm3 (0.00-0.031) Absolute Neuts (auto) 17.0 K/mm3 H K/mm3 (1.3-6.7) Absolute Nucleated RBC 0.0 K/mm3 K/mm3 (0.0-0.012) Nucleated RBC % 0.0 % % (0.0-0.2) PT 14.1 Seconds Seconds (11.1-14.7) INR 1.1 APTT 31.0 SECONDS SECONDS (22.3-36.8) Sodium 134 mmol/L L mmol/L (137-145) Potassium 5.0 mmol/L mmol/L (3.4-5.0) Chloride 99 mmol/L mmol/L (98-107) Carbon Dioxide 27 mmol/L mmol/L (22-30) Anion Gap 8 mmol/L mmol/L (8-16) BUN 61 mg/dL H D mg/dL (9-20) Creatinine 1.90 mg/dL H mg/dL (0.7-1.3) Estim Creat Clear Calc Not Reportable Estimated GFR 34 L (59 - ) Glucose 110 mg/dL mg/dL (65-110) Calcium 9.0 mg/dL mg/dL (8.4-10.2) Magnesium Iron TIBC % Saturation Transferrin Ferritin Total Bilirubin 0.6
[2022-05-28] MEDS: LACTATED RINGERS 1,000 ML 150 ML IV CONT (13:47)
--- NOTE | 2022-05-28 14:29 | WPDGICN ---
Assessment and Plan Assessment and plan (1) Melena: Code(s): K92.1 - Melena Status: Acute Assessment and Plan: admitted to hospital monitor for more signs of bleeding and transfuse if hb<7 will proceed with urgent egd on iv protonix (2) GI bleed: Code(s): K92.2 - Gastrointestinal hemorrhage, unspecified Status: Acute Assessment and Plan: probably upper gi source supportive care (3) JOE (acute kidney injury): Code(s): N17.9 - Acute kidney failure, unspecified Status: Acute Assessment and Plan: on treatment (4) Essential hypertension: Code(s): I10 - Essential (primary) hypertension Status: Acute (5) Effusion of right shoulder joint: Code(s): M25.411 - Effusion, right shoulder Status: Acute (6) Acute blood loss anemia: Code(s): D62 - Acute posthemorrhagic anemia Status: Acute Assessment and Plan: monitor for more signs of bleeding transfusion as needed GI Consult Note Consult date/time: 05/28/22 14:29 Reason for consult: melena, acute blood loss anemia HPI: Jaxon Moss is a 77 year old male with past medical history of HTN, HLD, BPH and recent right shoulder surgery. He came here with new onset of dark tarry stool, then became very lightheaded and dizzy, also generalized fatigue with shortness of breath on exertion.? After surgery took bactrim.?ER evaluation showed WBCs 19.5, bun 61, elevated creatinine 1.90, hb 7.5 (baseline 13), his last colonoscopy about 5 years ago. Started on iv protonix and admitted to hospital. No abdominal pain, normally does not use ppi. He is on baby aspirin. Review of Systems Review of Systems: All systems reviewed & are unremarkable except as noted in HPI and below Constitutional: Constitutional: Denies chills and Denies fever(s) Eyes: Eyes: Denies blurry vision ENT: Reports Normal hearing present Cardiovascular: Cardiovascular: Denies chest pain and Denies rapid heart rate Respiratory: Respiratory: Denies cough and Denies dyspnea Gastrointestinal: Gastrointestinal: Denies abdominal pain, Reports diarrhea, Denies nausea and Denies vomiting Comments: Rectal bleeding Musculoskeletal: Musculoskeletal: Denies back pain and Reports arthralgias (Post procedure) Integumentary/Breasts: Skin/Breast: Denies rash Neurologic: Reports as per HPI Psychiatric: Psychiatric: Denies anxiety PMFSH Past Medical History Medical History (Updated 05/28/22 @ 17:31 by Valdez Gerardo MD) Acquired hypothyroidism Acute blood loss anemia Benign prostatic hyperplasia with lower urinary tract symptoms Chronic, continuous use of opioids tramadol 20 years Essential hypertension Family history of colon cancer Hyperlipidemia Left ear impacted cerumen Melena Obesity Orthopedic aftercare for joint replacement Rotator cuff arthropathy of right shoulder Spinal stenosis of lumbar region Surgical History Surgical History H/O knee surgery both knees 2006 H/O shoulder surgery right shoulder 2014 History of hip surgery right hip 2011 Previous back surgery 2018 Status post reverse total arthroplasty of right shoulder Family History Family History Mother Hypertension Father Carcinoma of colon Social History Social History Social History: Patient lives at home with his Maricel who will be his surrogate. He has 2 kids and 4 grandchildren and 1 great grandchildren. He has 2 dogs and 1 cat. Patient wishes to be a full code at this time Smoking packs per day: 1 Smoking cigarettes per day: 20.0 Years smoked: 15 Smoking pack-years: 15.00 Smoking status: Former smoker Tobacco type: cigarettes Second hand tobacco smoke exposure: Yes Alcohol intake: never Drinks per week: 0 Alcoh
[2022-05-28] MEDS: EPINEPHrine INJ 1 MG/10 ML SYRINGE 0.3 MG XX (14:54)
--- NOTE | 2022-05-28 15:06 | SUR.PHASEII ---
Dr. Cotter requested 2mg of morphine to be given to patient after receiving epinephrine through gold probe use and complaining of abdominal pain. Dr. Reyna called and okayed the order also.
[2022-05-28] MEDS: MORPHINE SULFATE (*CRX) 2 MG/ML INJ IV PUSH (15:18)
[2022-05-28] MEDS: FINASTERIDE 5 MG TABLET PO (20:10)
[2022-05-28] MEDS: PANTOPRAZOLE SODIUM IV 40 MG VIAL IV PUSH (20:10)
[2022-05-28] MEDS: ATORVASTATIN 40 MG TABLET PO (20:10)
[2022-05-28] MEDS: guaiFENesin 200 MG/10 ML UDC PO (20:10)
[2022-05-29] VITALS (7 sets, daily range): BP systolic 110–119; BP diastolic 55–64; PULSE 64–119; RESP 18; TEMP 36.2–36.4; O2SAT 96–98
[2022-05-29] MEDS: SODIUM CHLORIDE 0.9% IV 1,000 ML 125 ML IV CONT (02:59)
[2022-05-29] MEDS: LEVOTHYROXINE SODIUM 100 MCG TABLET PO (05:39)
[2022-05-29 05:48] LABS: Basophils Absolute Auto 0.1 K/mm3 (0.0-0.1); Basophils Percent Auto 0.7 % (0.2-1.2); Eosinophils Absolute Auto 0.3 K/mm3 (0-0.3); Hematocrit 24.1 % (42.0-52.0); Hemoglobin 7.7 g/dL (14.0-18.0); Immature Granulocyte Absolute 0.08 K/mm3 (0.00-0.031); Immature Granulocyte Percent A 0.9 % (0-0.5); Lymphocytes Absolute Auto 0.91 K/mm3 (0.9-3.2); Mean Corpuscular Hemoglobin 30.1 pg (26-34); Mean Corpuscular Volume 94.1 fl (80-100); Mean Platelet Volume 10.1 fl (7.4-10.4); Monocytes Absolute Auto 0.7 K/mm3 (0.1-0.6); Monocytes Percent Auto 8.1 % (2.6-8.5); Neutrophils Percent Auto 77.3 % (45.5-73.1); Platelet Count Result 282 k/mm3 (150-375); Red Blood Count 2.56 M/mm3 (4.6-6.20); Red Cell Distribution Width 14.6 % (11.5-14.5); White Blood Count 9.1 K/mm3 (4.5-10.0)
[2022-05-29 06:28] LABS: Alanine Aminotransferase 21 U/L (6-50); Alkaline Phosphatase 62 U/L (38-126); Anion Gap 7 mmol/L (8-16); Aspartate Amino Transferase 37 U/L (17-59); Bilirubin,Total 0.7 mg/dL (0.2-1.3); Blood Urea Nitrogen 37 mg/dL (9-20); Carbon Dioxide 24 mmol/L (22-30); Chloride 105 mmol/L (98-107); Estimated CRCL calculation 51 ml/min; Estimated Glomerular Filt Rate 53; Glucose 96 mg/dL (65-110); Magnesium 1.6 mg/dL (1.6-2.3); Potassium 4.9 mmol/L (3.4-5.0); Sodium 136 mmol/L (137-145)
--- NOTE | 2022-05-29 07:57 | WPDANESPN ---
Anes - Prog Note Post-Op Date/Time: 05/29/22 07:57 Cardiovascular status: normal Respiratory status: normal Airway patency: baseline Mental status: baseline Post-Op hydration status: normal Vital Signs: Last Vital Signs Temp 36.4 C L 05/29/22 04:50 Pulse 74 05/29/22 04:50 Resp 18 05/29/22 04:50 BP 111/64 05/29/22 04:50 Pulse Ox 96 05/29/22 04:50 O2 Del Method Room Air 05/28/22 20:00 Pain Score (VAS): 2 I/O: Intake & Output 05/28/22 05/28/22 05/29/22 15:59 23:59 07:59 Intake Total 1550 1000 1000 Output Total 650 Balance 1550 1000 350 Laboratory Tests 05/29/22 05:20 05/29/22 05:16 05/27/22 05/28/22 05/29/22 11:27 07:33 05:16 WBC RBC Hgb 7.5 L Hct 23.7 L MCV MCH MCHC RDW Plt Count MPV Immature Gran % (Auto) Neut % (Auto) Lymph % (Auto) [place] % (Auto) Eos % (Auto) Baso % (Auto) Lymph # (Auto) [place] # (Auto) Eos # (Auto) Baso # (Auto) Abs Immat Gran (auto) Absolute Neuts (auto) Absolute Nucleated RBC Nucleated RBC % Sodium 136 L Potassium 4.9 Chloride 105 Carbon Dioxide 24 Anion Gap 7 L BUN 37 H D Creatinine 1.30 Estim Creat Clear Calc 51 Estimated GFR 53 L Glucose 96 Calcium 9.0 Magnesium 1.6 Total Bilirubin 0.7 AST 37 ALT 21 Alkaline Phosphatase 62 Total Protein 5.0 L Albumin 3.0 L Blood Type O Positive Antibody Screen Negative Crossmatch See Detail 05/29/22 05:20 WBC 9.1 RBC 2.56 L Hgb 7.7 L Hct 24.1 L MCV 94.1 MCH 30.1 MCHC 32.0 RDW 14.6 H Plt Count 282 MPV 10.1 Immature Gran % (Auto) 0.9 H Neut % (Auto) 77.3 H Lymph % (Auto) 10.0 L [place] % (Auto) 8.1 Eos % (Auto) 3.0 Baso % (Auto) 0.7 Lymph # (Auto) 0.91 [place] # (Auto) 0.7 H Eos # (Auto) 0.3 Baso # (Auto) 0.1 Abs Immat Gran (auto) 0.08 H Absolute Neuts (auto) 7.0 H Absolute Nucleated RBC 0.0 Nucleated RBC % 0.0 Sodium Potassium Chloride Carbon Dioxide Anion Gap BUN Creatinine Estim Creat Clear Calc Estimated GFR Glucose Calcium Magnesium Total Bilirubin AST ALT Alkaline Phosphatase Total Protein Albumin Blood Type Antibody Screen Crossmatch Microbiology 05/27/22 15:13 Blood Blood Culture - Preliminary 05/27/22 15:13 Blood Blood Culture - Preliminary Post-procedural complaints: none Patient Feedback: Patient satisfied with anesthetic care.
[2022-05-29] MEDS: METOPROLOL SUCCINATE EXT REL 25 MG TABCR PO (08:35)
[2022-05-29] MEDS: DOXYCYCLINE HYCLATE 100 MG TABLET PO (08:35)
[2022-05-29] MEDS: PANTOPRAZOLE SODIUM IV 40 MG VIAL IV PUSH (08:35)
[2022-05-29] MEDS: MAGNESIUM SULF 2 GM/WATER 50ML 2 GM/50 ML BAG IVPB (08:36)
--- NOTE | 2022-05-29 10:00 | PM.DS ---
DS: Admitting Diagnosis Discharge Date 05/29/22 1000 Admitting Diagnosis Acute blood loss anemia, GI bleed, JOE DS: Discharge Diagnosis Discharge Diagnosis (1) GI bleed: Code(s): K92.2 - Gastrointestinal hemorrhage, unspecified Status: Acute Assessment and Plan: Noted melana H/H 7.7/24.1 today, down from 12.9/41.1 on 04/17/22 Continue to trend labs Anemia labs iron 66, TIBC 284,% saturation 23 transferrin 185, ferritin 155, B12 354, folate 7.9 No supplementation indicated Transfuse as indicated Protonix p.o. Continue trend H/H GI consulted thank you for your help Transfuse one unit today 05/28/22 (2) Acute blood loss anemia: Code(s): D62 - Acute posthemorrhagic anemia Status: Acute Assessment and Plan: see above (3) JOE (acute kidney injury): Code(s): N17.9 - Acute kidney failure, unspecified Status: Acute Assessment and Plan: BUN/Cr elevated at 37/1.30 1L of NS given in the ED Continuous fluids at 125ml/hr Trend labs Hold lisinopril and HCTZ for now Renal adjust medication Avoid nephrotoxic medication Consider consulting nephro if no improvement (4) Effusion of right shoulder joint: Code(s): M25.411 - Effusion, right shoulder Status: Acute Assessment and Plan: Right should arthroplasty noted 2 weeks ago Hematoma development noted at follow up visit yesterday Aspiration of the joint performed and 150cc of bloody drainage noted Fluid on labs [place]id [place] [address]503 RBC, 1631 Nuc, and neutrophils were 73, lymphocytes 25, monocytes 2 Patient was placed on Bactrim, will discontinue due to increased renal failure Start on doxycycline Trend for infection WBC is trending down and is currently 12.6 Blood cultures ordered Shoulder xray from yesterday still pending Gram stain showed moderate WBC seen, no organisms (5) Hyperlipidemia: Code(s): E78.5 - Hyperlipidemia, unspecified Status: Acute Assessment and Plan: Continue home atorvastatin 40mg PO Daily (6) Benign prostatic hyperplasia with lower urinary tract symptoms: Code(s): N40.1 - Benign prostatic hyperplasia with lower urinary tract symptoms Status: Acute Assessment and Plan: Continue home finasteride 5mg PO Daily Bladder scan PRN Trend Urinary output consider urinary catheter if indicated (7) Essential hypertension: Code(s): I10 - Essential (primary) hypertension Status: Acute Assessment and Plan: BP is 110/55 hold lisinopril and HCTZ, due to renal failure Add amlodipine if indicated Trend BP Adjust therapy as indicated (8) Acquired hypothyroidism: Code(s): E03.9 - Hypothyroidism, unspecified Status: Acute Assessment and Plan: Continue home levothyroxine TSH 0.664 DS: Summary Hospital Course Hospital Course: patient is a 77-year-old male with a past medical history of hypothyroidism, anemia, hypertension, hyperlipidemia, and shoulder repair Who presented to the ED with complaints of melena. It was noted the patient had notice the night before his stool was bloody and bright red. When patient arrived his hemoglobin hematocrit were noted to be low and patient was given 2 units of packed red blood cells. H&H was on trend and GI was consulted patient went for an EGD and it was noted that the patient did have a very large ulcer. Epinephrine and cauterization was used to control the bleeding. H&H is currently 7.7/24.1. Was also noted that patient was going through an JOE. BUN creatinine are back down to baseline 37/1.30. IV fluids were given. Lisinopril and hydrochlorothiazide have been placed on hold. Patient also been taking Bactrim which can also cause renal failure. Bactrim has been stopped and doxycycline has been taking the place. Patient was also noted to have a lo
--- NOTE | 2022-05-29 10:00 | P.DS_ITS ---
DS: Admitting Diagnosis Discharge Date 05/29/22 1000 Admitting Diagnosis Acute blood loss anemia, GI bleed, JOE DS: Discharge Diagnosis Discharge Diagnosis (1) GI bleed: Code(s): K92.2 - Gastrointestinal hemorrhage, unspecified Status: Acute Assessment and Plan: * Noted melana * H/H 7.7/24.1 today, down from 12.9/41.1 on 04/17/22 * Continue to trend labs * Anemia labs iron 66, TIBC 284,% saturation 23 transferrin 185, ferritin 155, B12 354, folate 7.9 * No supplementation indicated * Transfuse as indicated * Protonix p.o. * Continue trend H/H * GI consulted thank you for your help * Transfuse one unit today 05/28/22 (2) Acute blood loss anemia: Code(s): D62 - Acute posthemorrhagic anemia Status: Acute Assessment and Plan: * see above (3) JOE (acute kidney injury): Code(s): N17.9 - Acute kidney failure, unspecified Status: Acute Assessment and Plan: * BUN/Cr elevated at 37/1.30 * 1L of NS given in the ED * Continuous fluids at 125ml/hr * Trend labs * Hold lisinopril and HCTZ for now * Renal adjust medication * Avoid nephrotoxic medication * Consider consulting nephro if no improvement (4) Effusion of right shoulder joint: Code(s): M25.411 - Effusion, right shoulder Status: Acute Assessment and Plan: * Right should arthroplasty noted 2 weeks ago * Hematoma development noted at follow up visit yesterday * Aspiration of the joint performed and 150cc of bloody drainage noted * Fluid on labs [place] [address]89 RBC, 1631 Nuc, and neutrophils were 73, lymphocytes 25, monocytes 2 * Patient was placed on Bactrim, will discontinue due to increased renal failure * Start on doxycycline * Trend for infection * WBC is trending down and is currently 12.6 * Blood cultures ordered * Shoulder xray from yesterday still pending * Gram stain showed moderate WBC seen, no organisms (5) Hyperlipidemia: Code(s): E78.5 - Hyperlipidemia, unspecified Status: Acute Assessment and Plan: * Continue home atorvastatin 40mg PO Daily (6) Benign prostatic hyperplasia with lower urinary tract symptoms: Code(s): N40.1 - Benign prostatic hyperplasia with lower urinary tract symptoms Status: Acute Assessment and Plan: * Continue home finasteride 5mg PO Daily * Bladder scan PRN * Trend Urinary output * consider urinary catheter if indicated (7) Essential hypertension: Code(s): I10 - Essential (primary) hypertension Status: Acute Assessment and Plan: * BP is 110/55 * hold lisinopril and HCTZ, due to renal failure * Add amlodipine if indicated * Trend BP * Adjust therapy as indicated (8) Acquired hypothyroidism: Code(s): E03.9 - Hypothyroidism, unspecified Status: Acute Assessment and Plan: * Continue home levothyroxine * TSH 0.664 DS: Summary Hospital Course Hospital Course: patient is a 77-year-old male with a past medical history of hypothyroidism, anemia, hypertension, hyperlipidemia, and shoulder repair Who presented to the ED with complaints of melena. It was noted the patient had notice the night before his stool was bloody and bright red. When patient arrived his hemoglobin hematocrit were noted to be low and patient was given 2 units of packed red b
== END 2022-05-29 12:37 | disposition home or self-care (01) | DRG 378 ==
LOC: ANHED 11:21 → ANH2MED 14:52
PROVIDERS: Internal Medicine Gastroenterology; Admitting Provider Student in an Organized Health Care Education/Training Program; Emergency Provider Emergency Medicine; PCP Family Medicine; Visit Provider Nurse Practitioner
PROC: 0DJ08ZZ Inspection of Upper Intestinal Tract, Via Natural or Artificial Opening Endoscopic (ICD-10-PCS; CPT 43235; principal; 2022-05-28 15:30)
DX: K26.0 Acute duodenal ulcer with hemorrhage (principal); D62 Acute posthemorrhagic anemia; N17.9 Acute kidney failure, unspecified; M96.840 Postprocedural hematoma of a musculoskeletal structure following a musculoskeletal system procedure; Z20.822 Contact with and (suspected) exposure to COVID-19; K29.70 Gastritis, unspecified, without bleeding; D50.9 Iron deficiency anemia, unspecified; M25.411 Effusion, right shoulder; E78.5 Hyperlipidemia, unspecified; Z96.611 Presence of right artificial shoulder joint; N40.1 Benign prostatic hyperplasia with lower urinary tract symptoms; I10 Essential (primary) hypertension; E03.9 Hypothyroidism, unspecified; D64.9 Anemia, unspecified; M48.061 Spinal stenosis, lumbar region without neurogenic claudication; E66.9 Obesity, unspecified; Z68.38 Body mass index [BMI] 38.0-38.9, adult; Z87.891 Personal history of nicotine dependence
CPT/HCPCS: 36415; 36430; 71045; 80053; 82607; 82728; 82746; 83540; 83550; 83735; 84443; 84466; 85014; 85018; 85025; 85610; 85730; 86850; 86900; 86901; 86920; 87040; 87070; 87075; 87081; 87205; 88305; 88342; 89051; 96361; 96374; 99285; A9270; C9113; C9803; G0378; J0171; J2001; J2270; J2704; J3475; J7030; J7050; J7060; J7120; P9016; U0003; U0005

== ENCOUNTER 2022-06-06 08:09 | Outpatient (CLI) | payer MEDICARE, SELFPAY ==
[2022-06-06 08:39] LABS: Basophils Percent Auto 0.5 % (0.2-1.2); Eosinophils Absolute Auto 0.2 K/mm3 (0-0.3); Hematocrit 28.9 % (42.0-52.0); Hemoglobin 8.9 g/dL (14.0-18.0); Immature Granulocyte Absolute 0.03 K/mm3 (0.00-0.031); Immature Granulocyte Percent A 0.4 % (0-0.5); Lymphocytes Absolute Auto 0.96 K/mm3 (0.9-3.2); Lymphocytes Percent Auto 12.1 % (18.3-44.2); Mean Corpuscular HGB Conc 30.8 g/dl (32-36); Mean Corpuscular Hemoglobin 29.4 pg (26-34); Mean Corpuscular Volume 95.4 fl (80-100); Monocytes Absolute Auto 0.7 K/mm3 (0.1-0.6); Monocytes Percent Auto 8.2 % (2.6-8.5); Neutrophils Percent Auto 75.8 % (45.5-73.1); Platelet Count Result 267 k/mm3 (150-375); Red Blood Count 3.03 M/mm3 (4.6-6.20)
== END 2022-06-06 08:10 | disposition home or self-care (01) ==
LOC: ANHLAB 08:12
PROVIDERS: PCP Family Medicine; Visit Provider Nurse Practitioner
DX: D62 Acute posthemorrhagic anemia (principal)
CPT/HCPCS: 36415; 85025

== ENCOUNTER 2022-08-25 02:24 | Day surgery (SDC) | payer MEDICARE, SELFPAY ==
[2022-08-07 13:52] VITALS: BMI 39.2
--- NOTE | 2022-08-24 09:28 | SUR.PREOP ---
928 PATIENT CALLED AND LEFT A MESSAGE TO CALL BACK REGARDING APPOINTMENT TOMORROW.
--- NOTE | 2022-08-24 10:53 | SUR.PREOP ---
1034 SPOKE WITH PATIENT REGARDING DR. OJEDA'S UNAVAILABILITY TOMORROW FOR HIS PROCEDURE. PATIENT WANTED PROCEDURE DONE TOMORROW. OFFERED FOR DR. PEREZ TO DO HIS PROCEDURE. PATIENT WAS OK WITH THAT. INSTRUCTED PATIENT TO COME IN AT HIS NORMAL TIME TOMORROW AND INSTRUCTED THAT WE WOULD WORK HIM HIM. PATIENT VOICED UNDERSTANDING AND DR. PEREZ AWARE.
[2022-08-25 07:40] VITALS: BP 132/69; PULSE 60; RESP 20; TEMP 36.5; O2SAT 99; BMI 37.5
[2022-08-25] MEDS: LACTATED RINGERS 1,000 ML 150 ML IV CONT (07:46)
--- NOTE | 2022-08-25 08:35 | WPDANESEPPF ---
Anes - Initial Pre Proc Eval Procedure: Operation Date: 08/25/22 09:00 Proposed Procedures p Esophagogastroduodenoscopy - Valdez Gerardo MD Date/Time: 08/25/22 08:35 Surgeon: Omari Andrade MD Pre Op Diagnosis: gastric ulcer Patient Data Age: 77 Gender: M Height: 1.7 m Weight: 108.8 kg Last Vital Signs Temp 97.7 F 08/25/22 07:40 Pulse 60 08/25/22 07:40 Resp 20 08/25/22 07:40 BP 132/69 08/25/22 07:40 Pulse Ox 99 08/25/22 07:40 O2 Del Method Room Air 08/25/22 07:40 Allergies Allergy/AdvReac Type Severity Reaction Status Date / Time No Known Allergies Allergy Verified 08/25/22 07:38 Home Medications Medication Instructions Recorded Confirmed Type calcium carbonate 200 mg calcium 1,000 mg PO DAILY 02/17/22 08/18/22 History (500 mg) chewable tablet (Tums) finasteride 5 mg tablet 5 mg PO HS 02/17/22 08/18/22 History vitamin A-vit C-vit E-zinc-Cu 1 tablet PO DAILY 02/17/22 08/18/22 History tablet pantoprazole 40 mg tablet,delayed 40 mg PO BID #60 tabs 06/09/22 08/18/22 Rx release (Protonix) tramadol 50 mg tablet 50 mg PO BID #180 tabs 06/09/22 08/18/22 Rx atorvastatin 40 mg tablet 40 mg PO HS #90 tabs 08/06/22 08/18/22 Rx hydrochlorothiazide 25 mg tablet 25 mg PO QAM #90 tabs 08/22/22 08/25/22 Rx levothyroxine 100 mcg tablet 100 mcg PO QAM #90 tabs 08/22/22 08/25/22 Rx metoprolol succinate 25 mg 25 mg PO QAM #90 tabs 08/22/22 08/25/22 Rx tablet,extended release 24 hr Patient hx anesthesia problems: none Family hx anesthesia problems: none Results Review: All pre-operative results and documents have been reviewed as part of the pre-operative evaluation. [facility] Past Medical History Medical History Acquired hypothyroidism Acute blood loss anemia Benign prostatic hyperplasia with lower urinary tract symptoms Chronic, continuous use of opioids tramadol 20 years Duodenal ulcer Essential hypertension Family history of colon cancer Hyperlipidemia Left ear impacted cerumen Melena Obesity Orthopedic aftercare for joint replacement Rotator cuff arthropathy of right shoulder Spinal stenosis of lumbar region Surgical History Surgical History H/O knee surgery both knees 2006 H/O shoulder surgery right shoulder 2015 History of hip surgery right hip 2010 History of reverse total replacement of right shoulder joint (~05/13/22) Previous back surgery 2018 Status post reverse total arthroplasty of right shoulder Family History Family History Mother Hypertension Father Carcinoma of colon Social History Social History Social History: Patient lives at home with his Maricel who will be his surrogate. He has 2 kids and 4 grandchildren and 1 great grandchildren. He has 2 dogs and 1 cat. 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
--- NOTE | 2022-08-25 09:24 | PM.HPGS ---
History of Present Illness History of Present Illness Consent: Risks, benefits, and alternatives have been discussed and questions answered. Patient agrees to proceed with procedure. Chief complaint: gastric ulcer Narrative: Jaxon Moss is a 77 year old male who was hospitalized with a bleeding duodenal ulcer 2 months ago. He returns now for follow-up to ensure healing after taking pantoprazole 40 mg b.i.d. since that hospitalization. At this time he is asymptomatic. Review of Systems Review of Systems: All systems reviewed & are unremarkable except as noted in HPI and below PMFSH Past Medical History Medical History Acquired hypothyroidism Acute blood loss anemia Benign prostatic hyperplasia with lower urinary tract symptoms Chronic, continuous use of opioids tramadol 20 years Duodenal ulcer Essential hypertension Family history of colon cancer Hyperlipidemia Left ear impacted cerumen Melena Obesity Orthopedic aftercare for joint replacement Rotator cuff arthropathy of right shoulder Spinal stenosis of lumbar region Surgical History Surgical History H/O knee surgery both knees 2006 H/O shoulder surgery right shoulder 2015 History of hip surgery right hip 2010 History of reverse total replacement of right shoulder joint (~05/13/22) Previous back surgery 2018 Status post reverse total arthroplasty of right shoulder Family History Family History Mother Hypertension Father Carcinoma of colon Social History Social History Social History: Patient lives at home with his Maricel who will be his surrogate. He has 2 kids and 4 grandchildren and 1 great grandchildren. He has 2 dogs and 1 cat. Patient wishes to be a full code at this time Smoking packs per day: 1 Smoking cigarettes per day: 20.0 Years smoked: 15 Smoking pack-years: 15.00 Smoking status: Former smoker Tobacco type: cigarettes Second hand tobacco smoke exposure: Yes Alcohol intake: never Drinks per week: 0 Alcohol use details: FEW DRINKS/YEAR Substance use: never Substance use type: crack/cocaine Living arrangements: with family Additional living arrangements comments: Additional occupation/education comments: [employer] Gender identity (if verbalized by the patient): Male Sexual Orientation (if Verbalized by the Patient): Straight or Heterosexual Spiritual care concerns: No Agree to blood products: Yes Meds Home Medications and Allergies Home Medications Medication Instructions Recorded Confirmed Type calcium carbonate 200 mg calcium 1,000 mg PO DAILY 02/17/22 08/18/22 History (500 mg) chewable tablet (Tums) finasteride 5 mg tablet 5 mg PO HS 02/17/22 08/18/22 History vitamin A-vit C-vit E-zinc-Cu 1 tablet PO DAILY 02/17/22 08/18/22 History tablet pantoprazole 40 mg tablet,delayed 40 mg PO BID #60 tabs 06/09/22 08/18/22 Rx release (Protonix) tramadol 50 mg tablet 50 mg PO BID #180 tabs 06/09/22 08/18/22 Rx atorvastatin 40 mg tablet 40 mg PO HS #90 tabs 08/06/22 08/18/22 Rx hydrochlorothiazide 25 mg tablet 25 mg PO QAM #90 tabs 08/22/22 08/25/22 Rx levothyroxine 100 mcg tablet 100 mcg PO QAM #90 tabs 08/22/22 08/25/22 Rx metoprolol succinate 25 mg 25 mg PO QAM #90 tabs 08/22/22 08/25/22 Rx tablet,extended release 24 hr Allergies Allergy/AdvReac Type Severity Reaction Status Date / Time No Known Allergies Allergy Verified 08/25/22 07:38 Vital Signs Vital Signs - 24 hr 08/25/22 07:40 Temperature 36.5 C Pulse Rate 60 Respiratory Rate 20 Blood Pressure 132/69 Pulse Oximetry 99 Oxygen Delivery Room Air Exam Const: General: alert Orientation/consciousness: patient oriented x3 Resp: Auscultation: clear to auscultation bilaterall
[2022-08-25 09:31] VITALS: BP 106/62; PULSE 56; RESP 19; O2SAT 98
[2022-08-25 09:41] VITALS: BP 109/67; PULSE 58; RESP 22; O2SAT 97
[2022-08-25 09:51] VITALS: BP 115/72; PULSE 52; RESP 22; O2SAT 96
== END 2022-08-25 10:00 | disposition home or self-care (01) ==
PROVIDERS: PCP Family Medicine; Visit Provider Internal Medicine Gastroenterology
PROC: 0DJ08ZZ Inspection of Upper Intestinal Tract, Via Natural or Artificial Opening Endoscopic (ICD-10-PCS; CPT 43235; principal; 2022-08-25 15:00)
DX: Z09 Encounter for follow-up examination after completed treatment for conditions other than malignant neoplasm (principal); Z87.11 Personal history of peptic ulcer disease; I10 Essential (primary) hypertension; E78.5 Hyperlipidemia, unspecified; N40.1 Benign prostatic hyperplasia with lower urinary tract symptoms; E03.9 Hypothyroidism, unspecified; Z80.0 Family history of malignant neoplasm of digestive organs; Z79.891 Long term (current) use of opiate analgesic; Z87.891 Personal history of nicotine dependence; E66.9 Obesity, unspecified; Z68.37 Body mass index [BMI] 37.0-37.9, adult
CPT/HCPCS: 43235; J2704; J7120

== ENCOUNTER 2023-03-16 08:31 | Outpatient (CLI) | payer MEDICARE, SELFPAY ==
--- NOTE | ~2023-03-16 | US_ITS ---
EXAMINATION: US aorta DATE: 03/16/2023 09:09 CDT INDICATION: Follow-up abdominal aortic aneurysm TECHNIQUE: Grayscale, color Doppler, and pulsed Doppler images of the aorta and common iliac arteries were obtained. COMPARISON: Ultrasound dated 03/10/2022. FINDINGS: The proximal aorta measures 3.4 cm greatest sagittal dimension. The mid aorta measures 2.6 cm greates t sagittal dimension. The distal aorta measures 3 cm greatest sagittal dimension. The right common in ternal iliac artery measures 1.5. The left common iliac artery measures 1.6. IMPRESSION: 1. Fusiform proximal abdominal aortic aneurysm measuring 3.4 cm. Reviewed, dictated and finalized at location B.
== END 2023-03-16 08:32 | disposition home or self-care (01) ==
PROVIDERS: PCP Family Medicine; Visit Provider Family Medicine
DX: I71.40 Abdominal aortic aneurysm, without rupture, unspecified (principal)
CPT/HCPCS: 76775

== ENCOUNTER 2024-06-01 08:25 | Outpatient (CLI) | payer MEDICARE, SELFPAY ==
--- NOTE | ~2024-06-01 | US_ITS ---
EXAMINATION: US aorta DATE: 06/01/2024 09:21 INDICATION: Abdominal aortic aneurysm without rupture. TECHNIQUE: Grayscale, color Doppler, and pulsed Doppler images of the aorta and common iliac arteries were obtained. COMPARISON: Ultrasound 03/16/2023 FINDINGS: The aorta demonstrates a 3.6 cm fusiform suprarenal aneurysm. The right common iliac artery is normal in caliber. The left common iliac artery is normal in caliber. IMPRESSION: 1. 3.6 cm fusiform suprarenal aortic aneurysm, stable from 03/16/2023. Reviewed, dictated and finalized at location A.
== END 2024-06-01 08:26 | disposition home or self-care (01) ==
PROVIDERS: PCP Family Medicine; Visit Provider Family Medicine
DX: I71.43 Infrarenal abdominal aortic aneurysm, without rupture (principal)
CPT/HCPCS: 76775

== ENCOUNTER 2025-05-09 09:06 | Outpatient (CLI) | payer MEDICARE, SELFPAY ==
--- NOTE | ~2025-05-09 | US_ITS ---
Exam: US aorta - 05/09/2025 9:26 CDT History: 80 years old Male with I71.40 - Abdominal aortic aneurysm, without rupture, unsp... Technique: Sonography of the abdominal aorta and proximal common iliac arteries was performed. Color Doppler was used. Comparison: None available. 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 The right common iliac artery measures 1.5 cm. The left common iliac artery measures 1.4 cm. IMPRESSION: Interval increase in size of suprarenal proximal abdominal aortic aneurysm measuring up to 4.1 cm, as detailed above. Reviewed, dictated and finalized at location A. IMPRESSION: Interval increase in size of suprarenal proximal abdominal aortic aneurysm zan uring up to 4.1 cm, as detailed above.
--- OUTSIDE RECORDS SUMMARY | 2025-05-09 09:10 | XMS_ITS | Clinical Summary ---
Author Organization [facility] Address [address] [place] [address] Phone Care Team Providers Care Magnetic Resonance Imaging Director Name Role Phone Jose Antonio Pablo MD Primary Care Provider Immunizations Immunization Administration Dates Next Due Covid-19, Mrna, Lnp-s, Pf, 30 Mcg/0.3 Ml Dose (P fizer) 11/30/2020,11/09/2020 Social History Tobacco Use Types Packs/Day Years Used Date Smoking Tobacco: Never Assessed Sex and Gender Information Value Date Recorded Sex Assigned at Not on file Legal Sex Male 11:41 PM CDT Gender Identity Not on file Sexual Orientation Not on file Plan of Treatment Health Maintenance Due Date Last Done Comments Hepatitis C Virus (HCV) Screening 1945 TdaP Immunization 1945 Pneumococcal Immunization (5 0+ years) (1 of 1 - PCV) 1993 Zoster Immunization (1 of 2) 1993 Respiratory Syncytial Virus (RSV) Immunization (Adult) (1 - 1-dose 75+ series) 2018 Influenza Immunization (#1) 2024 SARS-COV-2 Immunization (2023- season) 2024 11/30/2020, 11/09/2020 Hepatitis B Immunization Aged Out No longer eligible based on patient's age to complete this topic Meningococcal Immunization (ACWY) Aged Out No longer eligible b ased on patient's age to complete this topic Rotavirus Immunization Aged Out No lo nger eligible based on patient's age to complete this topic Insurance MEDICARE [employer] Care Teams Magnetic Resonance Imaging Director Relationship Specialty Start Date End Date Jose Antonio Pablo MD [address] [place] [address] PCP - General Family Medicine 03/04/19
--- OUTSIDE RECORDS SUMMARY | 2025-05-09 09:10 | XMS_ITS | Clinical Summary ---
Author Organization [facility] Address [address] [place] [address] Care Team Providers Care Director Of Institutional Giving Name Role Phone Unavailable Primary Care Provider Unavailabl e Social History Tobacco Use Types Packs/Day Years Used Date Smoking Tobacco: Never Assessed Sex and Gender Information Value Date Recorded Sex Assigned at Not on file Legal Sex Male 7:59 PM CDT Gender Identity Not on file Sexual Orientation Not on file Plan of Treatment Health Maintenance Due Date Last Done Comments DTaP, Tdap and Td Vaccines ( 1 - Tdap) 1962 Pneumococcal Vaccine: 50+ Ye ars (1 of 1 - PCV) 1993 Zoster Vaccines (1 of 2) 1993 RSV Immunization or 60+ Years (1 - 1-dose 75+ series) 2018 COVID-19 Vaccine ( - 2023-2 5 season) 2024 Meningococcal B Vaccine Aged Out No l onger eligible based on patient's age to complete this topic Meningococcal Vaccine Aged Out No juliocesar chantal eligible based on patient's age to complete this topic RSV Immunizations Under 20 Months Aged Out No longer eligible based on patient's age to complete this topic
--- OUTSIDE RECORDS SUMMARY | 2025-05-09 09:10 | XMS_ITS | Continuity of Care Document ---
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 Machine Name Role Phone Yanira Cantu Unavailable Unavailable Allergies, Adverse Reactions, Alerts Substance Reaction Status Criticality No Known Allergies Active No Inform ation Medications Medication Instructions Dosage Effective Dates (start - stop) Status Comments tramadol 50 mg tablet take 2 tablet by oral route every day as needed- LD this AM - Active levothyroxine 100 mcg tablet take 1 tablet by oral route every day 100 MCG - Active metoprolol succinate ER 25 mg tablet,extended release 24 hr take 1 tablet by oral route every day 25 MG - Active finasteride 5 mg tablet take 1 tablet by oral route every day 5 MG - Active PreserVision AREDS 2 250 mg-200 unit-40 mg-1 mg capsule take 1 capsule by oral route every day for 1 day 1 capsule - Active Tums 200 mg calcium (500 mg) chewable tablet QD - Active aspirin 81 mg tablet,delayed release take 1 tablet by oral route every day 81 MG - No Longer Active Procedures Procedure Date Correct Trichiasis; Epilat-for Ophth Serv: Med Exam; Comp Est 25 Earmold/insert, Not disp Box Of Hearing Aid Batteries HEARING AID CHECK, BOTH EARS Ophth Serv: Med Exam; Comp Est 24 Hearing Aid Batteries Hearing Aid Batteries HEARING AID CHECK, BOTH EARS Box Of Hearing Aid Batteries Ophth Serv: Med Exam; Comp Est HEARING AID CHECK, BOTH EARS Box Of Hearing Aid Batteries Battery for hearing device HEARING AID CHECK, BOTH EARS Correct Trichiasis; Epilat-for Ophth Serv: Med Exam; Comp Est HEARING AID CHECK, BOTH EARS Box Of Hearing Aid Batteries HEARING AID CHECK, BOTH EARS Box Of Hearing Aid Batteries Ophth Serv: Med Exam; Comp Est Hearing aid fitting/checking Hearing aid, digit, bin, bte Hearing Aid Evaluation HEARING AID EXAM, BOTH EARS [facility] 7 [facility] Hearing Aids Unit[facility] 7 [facility] Hearing Aids Trial Hearing Aid Hearing Services HEARING AID CHECK, BOTH EARS Box Of Hearing Aid Batteries HEARING AID CHECK, BOTH EARS Box Of Hearing Aid Batteries Box Of Hearing Aid Batteries Desk Payment Ophth Serv: Med Exam; Comp Est 18 REFRACTION Box Of Hearing Aid Batteries HEARING AID CHECK, BOTH EARS Ophth Serv: Med Exam; Comp Est HEARING AID CHECK, BOTH EARS Hearing aid, digit, mon, ite Box Of Hearing Aid Batteries Box Of Hearing Aid Batteries HEARING AID CHECK, BOTH EARS Hearing aid fitting/checking Hearing aid, digit, bin, bte Hearing aid supply/accessory Moxi Fit 600 [facility] Hearing Aids Moxi Fit 600 [facility] Hearing Aids [facility] Hearing Aid Evaluation HEARING AID EXAM, BOTH EARS Desk Payment Ophth Serv: Med Exam; Comp Est 15 REFRACTION Ophth Serv: Med Exam; Interm E 15 REFRACTION Postop F/u Visit Incld Global 4 No Charge Refraction Postop F/u Visit Incld Global 4 No Charge Refraction FACILITY No Event On Discharge Patient W/OPreop Order IV AB Prop Offic/outpt E&m New Mod Sever 4 TOBACCO NON-USER Doc meds verified w/pt or re Offic/outpt E&m New Mod-hi 45 4 Ophth Biomet Part Cohernc Intr 14 REFRACTION Surgery Pre-Payment CATARACT SURG W/IOL, 1 STAGE Anes- Eye; Lens Surg Determ Refractive State Post Op 014 Advance Directives Directive Yes / No Effective Date File Name No Information Encounters Encounter Description Practice Location Reason(s) For Visit Diagnoses Date Provider Providers Copied on Encounter julianna, [address] [place] [address], [id number] , tel:[phone] [facility] Floaters (chief complaint) Trichiasis (chief complaint) Presence of intraocular lensOther vitreous opacities, right eyeTrichiasis of left upper eyelid Mar-0 3-202 5 [facility]. [address] [facility] [address] [place], [place], [id number], [place]. tel:[phone] Referring Provider: Kaycee MAHMOOD, [address] [facility] [address] [place], [address] . tel:[phone] [facility], [address], [id number] , [phone] [facility] No Information [address] , [place], [place], [address] [place] [address], . tel:[phone] Referring Provider: Kaycee MAHMOOD, [address], [place], [address] [place] [address] . tel:[phone] [facility], [address] , [place], [address] [place] [address] , tel:[phone] [facility] No Information 4 Joe [facility]aresnda. [address] [facility] , [place], [address] [place] [address], . tel:[phone] Referring Provider: Kaycee MAHMOOD, [address] [facility] [address] , [place], [address] [place] [address] . tel:[phone] [facility], [address] , [place], [address] [place] [address] , tel:[phone] [facility] No Information 4 Joe Benoit. [address] [facility] [address] , [place], [address] [place] [address], . tel:[phone] Referring Provider: Genesis Arambula, [address] [facility], [place], [address] [place] [address] . tel:[phone] [facility], [address] , [place], [address] [place] [address] , tel:[phone] [facility] Eyelashes rubbing (chief complaint) Trichiasis of left upper eyelidVitreous opacities of right eyePresence of intraocular lens 4 Alondra Doyle. [address] [facility] [address] , [place], [address] [place] [address], . tel:[phone] Referring Provider: Yanira Cantu, [address] , [place], [address] . tel:[phone] [facility], [address], [place], [place], [address] , [place] tel:[phone] [facility] No Information [address], [place], [place], [id number], [place]. [phone] Referring Provider: Yanira Cantu, [address], [place], [address] . tel:[phone] [facility], [address] [facility] [address], [place], [place], [id number] , tel:[phone] [facility] Sensorineural hearing loss, bilateral Jan- 3 Clingerman Esthela Kothari. [address] [facility] [address], [place], [employer], . tel:[phone] Referring Provider: Kaycee MAHMOOD, [address], [place], [address] . tel:[phone] [facility], [address], [place], [place] [address] , [place] tel:[phone] [facility] Dry eyes (chief complaint) Keratoconjunctivit is sicca, not specified as Sjogren's, bilateralPresence of intraocular lensOther vitreous opacities, bilateral [address], [place], [place], [id number], [place]. tel:[phone] Referring Provider: Yanira Summers, [address] , [place], [address] . tel:[phone] [facility], [address], [place], [place], [address] , [place] tel:[phone] [facility] Sensorineural hearing loss, bilateral 3 Yadi Kothari. [address] [facility] [address], [place], [address], [place]. tel:[phone] Referring Provider: Yanira Summers, [address], [place], [address] . tel:[phone] [facility], [address], [place], [place], [address] , [place] tel:[phone] [facility] Sensorineural hearing loss, bilateral 2 Decelles AuD Kalyani. [address], [place], [address], [place]. tel:[phone] Referring Provider: Kalyani Proctor, [address], [place], [address]. tel:[phone] [facility], [address], [place], [place], [id number] , [place] tel:[phone] [facility] Dry eyes (chief complaint) Presence of intraocular lensTrichiasis of left upper eyelidKeratoconjun ctivitis sicca, not specified as Sjogren's, bilateral [address], [place], [place], [address], [place]. tel:[phone] Referring Provider: Yanira Summers, [address], [place], [address] . tel:[phone] [facility], [address], [place], [place], [address] , [place] tel:[phone] [facility] Sensorineural hearing loss, bilateral 1 Decelles AuD Kalyani. [address], [place], [address], [place]. tel:[phone] Referring Provider: Kaycee MAHMOOD, [address], [place], [address] . tel:[phone] [facility], [address] , [place], [address] , [place] tel:[phone] [facility] No Information 1 Decelles AuD Kalyani. [address], [place], [address], [place]. tel:[phone] Referring Provider: Kaycee MAHMOOD, [address] [facility], [place], [address] . tel:[phone] [facility], [address] [facility], [place], [place], [id number] , [place] tel:[phone] [facility] Dry eyes (chief complaint) Presence of intraocular lensBilateral keratoconjunctivit is sicca, not specified as Sjogren's 0- 0 Alondra Doyle. [address] [facility], [place], [address], [place]. tel:[phone] Referring Provider: Yanira Summers, [address] [place], [address] . tel:[phone] [facility], [address] [facility] [address] , [place], [place], [address] , tel:[phone] [facility] No Information 0 Decelles AuD Kalyani. [address], [place], [address], [place]. tel:[phone] Referring Provider: Yanira Summers, [address] [place], [address] . tel:[phone] [facility], [address] [facility] [address] , [place], [place], [address] , [place] tel:[phone] [facility] No Information 0 Decelles AuD Kalyani. [address], [place], [address], [place]. tel:[phone] Referring Provider: Kaycee MAHMOOD, [address] [facility], [place], [address] . tel:[phone] [facility], [address] [facility] [address] , [place], [place], [address] , tel:[phone] [facility] No Information 8-202 0 Decelles AuD Kalyani. [address], [place], [facility], [place]. tel:[phone] Referring Provider: Kaycee MAHMOOD, [address] [facility], [place], [address] . tel:[phone] [facility], [address] [facility], [place], [place], [address] , tel:[phone] [facility] No Information 8-202 0 Decelles AuD Kalyani. [address], [place], [facility], [place]. tel:[phone] Referring Provider: Kaycee MAHMOOD, [address] [facility], [place], [address] [place] [address] . tel:[phone] [facility], [address] [facility], [place], [place], [address] , tel:[phone] [facility] No Information Apr-0 3-201 9 Decelles AuD Kalyani. [address], [place], [facility], [place]. tel:[phone] Referring Provider: Kalyani Proctor, [address], [place], [facility]. tel:[phone] [facility], [address] [facility] [address] , [place], [address] , tel:[phone] [facility] No Information Apr-0 4-201 8 Decelles AuD Kalyani. [address], [place], [address], [place]. tel:[phone] Referring Provider: Kalyani Proctor, [address] [facility] [address], [place], [address]. tel:[phone] [facility], [address] , [place], [place], [address] , [place] [phone] [facility] Floaters (chief complaint) Presence of intraocular lensPresbyopiaOthe r vitreous opacities, right eye 8 Alondra Yanira. [address] [facility] [address] , [place], [address], [place]. tel:[phone] Referring Provider: Yanira Summers, [address] [facility], [place], [address] . tel:[phone] [facility], [address] , [place], [place], [address] , [place] tel:[phone] [facility] No Information Decelles AuD Kalyani. [address] [facility], [address], [place], [address], [place]. tel:[phone] Referring Provider: Kaycee MAHMOOD, [address] [facility], [place], [address] . tel:[phone] [facility], [address] [facility] [address] , [place], [place], [address] , [place] [phone] [facility] No Information 7 Decelles AuD Kalyani. [address] [facility], [address], [place], [address], [place]. tel:[phone] Referring Provider: Kalyani Proctor, [address] [facility] [address], [place], [address]. tel:[phone] [facility], [address] [facility] 19 , [place], [place], [address] , [place] tel:[phone] [facility] Floaters (chief complaint) Tearing (chief complaint) Presence of intraocular lens 7 Alondra Doyle. [address], [place], [place], [address], . tel:[phone] Referring Provider: Yanirapriscilla Cantu Melina, [address] , [place], [address] . tel:[phone] [facility], [address], [place], [place], [address] , tel:[phone] [facility] No Information 4-201 6 Decelles AuD Kalyani. [address] [facility], [address], [place], [facility], . tel:[phone] Referring Provider: Kalyani Proctor, [address] [facility] [address], [place], [facility]. tel:[phone] [facility], [address], [id number] , [phone] [facility] No Information 6 Decelles AuD Kalyani. [address] [facility], [place], [facility], [place]. tel:[phone] Referring Provider: Kalyani Proctor, [address] [facility] [address], [place], [facility]. tel:[phone] [facility], [address], [id number] , [phone] [facility] No Information 5 Decelles AuD Kalyani. [address], [place], [address], [place]. tel:[phone] Referring Provider: Kalyani Proctor, [address] [facility] [address], [place], [facility]. tel:[phone] [facility], [address] [facility] [address] [place], [address] , [place] tel:[phone] [facility] No Information Oct- Decelles AuD Kalyani. [address] [facility], [address], [place], [address], [place]. tel:[phone] Referring Provider: Kalyani Proctor, [address] [facility] [address], [place], [facility]. tel:[phone] [facility], [address], [id number] , tel:[phone] [facility] No Information Sep- Decelles AuD Kalyani. [address] [facility], [address], [place], [address], [place]. [phone] Referring Provider: Kalyani Proctor, [address] [facility] [address], [place], [facility]. tel:[phone] [facility], [address], [id number] , tel:[phone] [facility] No Information Decelles AuD Kalyani. [address] [facility], [address], [place], [address], [place]. tel:[phone] Referring Provider: Kalyani Proctor, [facility] [facility] [address], [place], [address]. tel:[phone] [facility], [address] [facility] [address] [place] [address], [id number] , [place] tel:[phone] [facility] Decreased vision (chief complaint) Presence of intraocular lensRegular astigmatism, bilateralUnspecifi ed astigmatism, bilateral Nov- Alondra Doyle. [address] [facility] 19 , [place], [address], [place]. tel:[phone] Referring Provider: Yanira Cantu, [address], [place], [address] [place] [address] . tel:[phone] [facility], [address] [facility], [place], [place], [address] , tel:[phone] [facility] No Information [address] [place] Yanira. [address], [address] [place] [address], . tel:[phone] Referring Provider: Yanira Cantu, [address], [address] [place] [address] . tel:[phone] [facility], [address], [address] [place] [address] , tel:[phone] [facility] No Information [place] Yanira. [address], [address] [place] [address], . tel:[phone] Referring Provider: Yanira Cantu, [address], [address] [place] [address] . tel:[phone] [facility], [address], [address] [place] [address] , tel:[phone] [facility] No Information [place] Yanira. [address], [id number], . tel:[phone] Referring Provider: Yanira Cantu, [address], [address] [place] [address] . tel:[phone] [facility] [place], [address] [place] [address], [id number] , tel:[phone] [facility] No Information [facility] [place]. [address], [address] [place] [address], . tel:[phone] Referring Provider: Mina Dodge, [address] [facility] [address] [place] [address], [address] . tel:[phone] Offic/outpt E&m New Mod Sever [facility], [address] , [place], [address] [place] [address] , [phone] [facility] Pre-Op Clearance (chief complaint) thyroid problems (chief complaint) Ankle Edema (chief complaint) arthritis (chief complaint) BPH (chief complaint) Pre op exam 4 No Information Referring Provider: Mina Dodge, [address] [place] [address], [address] [place] [address] . tel:[phone] Offic/outpt E&m New Mod-hi 45 [facility], [address] [place] [address], [address] [place] [address] , tel:[phone] [facility] No Information 4 Monserrat Enriquez. [address], [address] [place] [address], . tel:[phone] Referring Provider: Mina Dodge, [address], [address] [place] [address] . tel:[phone] [facility], [address] [place] [address], [address] [place] [address] , tel:[phone] [facility] No Information 4 Monserrat Enriquez. [address], [address] [place] [address], . tel:[phone] Referring Provider: Mina Dodge, [address], [address] [place] [address] . tel:[phone] [facility], [address] [place] [address], [address] [place] [address] tel:[phone] [facility] No Information 4 Monserrat Enriquez. [address], [address] [place] [address]. tel:[phone] Referring Provider: Mina Dodge, [address] [place] [address], [address] [place] [address] . tel:[phone] [facility], [address] [place] [address], [address] [place] [address] [phone] [facility] No Information 4 Monserrat Enriquez. [address], [address] [place] [address]. tel:[phone] Referring Provider: Mina Dodge, [address] [place] [address], [address] [place] [address] . tel:[phone] Family History Family Member Type Diagnosis Age At Onset Father Problem (finding) cancer of colon (Cause Of ) 62 Sister Problem (finding) diabetes melli tus in first degree relative 61 Mother Problem (finding) (Cause Of ) 89 Payers Payer name Insurance type Covered alliance party ID Authoriza ticharly(s) Medicare [id number] [facility] [employer] [id number] [place] [id number] Social History Type Description Quantity Date Captured Comments Alcohol Use Details Caffeine Use Details Unknown Tobacco Use Status Ex-cigarette smoker 025 Smoking Status Former smoker Smoking Tobacco Use Details Cigarette: Age Stopped: 38, Years Used 10 Cigarette: 1 Packs per day, Pack Year: 10 Sex Male Chief Complaint And Reason For Visit From encounter dated '01/02/2025 13:45'. Floaters (chief complaint). Description: Patient presents for yearly follow up of floaters in the right eye. Patient states that floaters have remained stable. Denies new onset or flashes in vision. Trichiasis (chief complaint). Description: Patient presents with history of trichiasis, left upper eyelid. Patient states that his has been pulling his eyelashes to relieve discomfort. Notes that eye feels irritated. No vision complaints. Reason For Referral Reason For Referral No Information Plan Of Treatment Date Type Action Status Appointment Jaxon Moss BOOKED Appointment Jaxon Moss BOOKED Patient Education Dry Eyes: Care Instruct ions completed Patient Education Presbyopia: Care Instru ctions completed Patient Education Presbyopia: Care Instru ctions completed History Of Present Illness Encounter Date Complaint History Of Prese nt Illness Floaters Patient presents for yearly follow up of floaters in the right eye. Patient states that floaters have remained stable. Denies new onset or flashes in vision. Trichiasis Patient presents with history of trichiasis, left upper eyelid. Patient states that his has been pulling his eyelashes to relieve discomfort. Notes that eye feels irritated. No vision complaints. Eyelashes rubbing Patient presen ts for yearly dilated exam and has complaint of eyelashes rubbing against the eye. States he has to remove them every 2-3 weeks from upper lashes left eye. Patient states his eyes become irritated and blurry. Uses artificial tears which helps. Dry eyes Patient presents with history of dry eyes. Patient states that eyes have felt comfortable, only uses ATs when he remembers to. Reports stable vision. Dry eyes Patient presents with history of dry eyes OU. Patient states that eyes still feel dry, but does not use ATs as often as he should. Reports that it will occasionally feel like something is in left eye under the lid and ATs do not provide relief. Dry eyes Patient presents for a 2 year dilated exam follow up to dry eyes OU. Per patient states his eyes feel dry sometimes but uses artificial tears once daily and it helps. No changes in vision in both eyes. Floaters The 72 year old male presents for an evaluation of floaters OD. Patient reports the floaters are stationary and go with his vision they don't float around. Patient reports no changes to vision and denies pain/discomfort. Patient also denies flashes of light. Tearing Patient complain s of when reading a lot notices that both his eyes tear alot. Floaters Patient presents for a yearly exam. Per patient complains of occasional floaters unknown of which eye. Patient denies any new onset or flashes of light. Patient states his vision in both eyes remains adequate for all day activities. Patient denies any pain or discomfort. Decreased vision The 70 year old male presents for evaluation of Decreased vision OU x last visit. Pt states he has trouble reading street signs. Street signs seem fuzzy until I get right up to them. Pt states occ. floaters, stable. Pt denies pain/discomfort. No gtts. BPH Additional infor nickolas: TURP / PSA 0.9. arthritis OA- Rt Hip 2008 and bilat knee prosthesis 2006 (unsteady gait- pt doesn't use cane or walker) Ankle Edema Furosemide thyroid problems Hypothyroidism- controlled with medication. No surgery or WINTER Pre-Op Clearance Cataract Surger y with Dr. German- OSLabs: April 2014- WNL Functional Status Date Functional Assessmen t No Information Instructions Date Instruction Additional Infor nickolas RTC 1 year with RDS for long exa m Related to Other vitreous opacities, right eye Impression/Plan Related to Prese nce of intraocular lens Impression/Plan Related to Other vitreous opacities, right eye Impression/Plan Related to Trich iasis of left upper eyelid Return in 1 year for Dilated fundus exam with Dr Yanira Cantu Related to Trichiasis of left upper eyelid Impression/Plan Related to Vitre ous opacities of right eye Impression/Plan Related to Prese nce of intraocular lens Impression/Plan Related to Trich iasis of left upper eyelid RTC 1 year with RDS for long exa m Related to Keratoconjunctivitis sicca, not specified as Sjogren's, bilateral Impression/Plan Related to Prese nce of intraocular lens Impression/Plan Related to Other vitreous opacities, bilateral Impression/Plan Related to Kerat oconjunctivitis sicca, not specified as Sjogren's, bilateral RTC 1 year with RDS for long exa m Related to Keratoconjunctivitis sicca, not specified as Sjogren's, bilateral Impression/Plan Related to Trich iasis of left upper eyelid Impression/Plan Related to Kerat oconjunctivitis sicca, not specified as Sjogren's, bilateral Impression/Plan Related to Prese nce of intraocular lens Return in 1 year ebony Cantu OD for Complete Dilated Fundus Exam. Related to Bilateral keratoconjunctivitis sicca, not specified as Sjogren's Impression/Plan Related to Bilat eral keratoconjunctivitis sicca, not specified as Sjogren's Impression/Plan Related to Prese nce of intraocular lens RTC 1 year with Hellen eter for long exam Related to Presence of intraocular lens Impression/Plan - L enses in place, monitor. Related to Presence of intraocular lens Follow up - RTC 1 y ear with Alondra for long exam Related to Presence of intraocular lens Impression/Plan - E ducated patient on S/S of retinal detachment. Call maria fernanda if any decrease vision, curtain or shadow, increase floaters and flashes. Related to Other vitreous opacities, right eye Impression/Plan - C ontinue with readers, monitor. Related to Presbyopia Return in 1 year ebony Cantu OD, Yanira for Established Patient Long. Related to Presence of intraocular lens Impression/Plan - L enses in place, monitor. Continue with current reading glasses. Related to Presence of intraocular lens Follow up - Return in 1 year with Alondra OD, Yanira for Established Patient Long. Related to Presence of intraocular lens Return in 1 year ebony Cantu OD, Yanira for Established Patient Long. Related to Presence of intraocular lens Impression/Plan - R x for glasses given Related to Regular astigmatism, bilateral Impression/Plan - Monitor Rela massiel to Presence of intraocular lens Follow up - Return in 1 year with Alondra OD, Yanira for Established Patient Long. Related to Presence of intraocular lens Cleared for surgery pending blood pressure after sedationPatient advised to see PCP to F/U with blood pressure and edema.BBB/ Sinus arrhythmia on heart trace- copy to pt to give to doctor once estab in here in [place]. Pt's PCP is located in [place]. pt aware of Bradycardia and mentioned that one arm is always higher than the other arm with blood pressure. Patient also not sure the cause of ankle edema (patient takes furosemide) Related to Pre op exam Assessments Type Assessment Date assessment Presence of intraocular lens Dec impression Status: Stable assessment Other vitreous opacities, right eye assessment Trichiasis of left upper eyelid impression Status: Symptomatic impression Status: Stable Patient Care Teams Name Effective Dates (start - stop) Status Members No Information
--- OUTSIDE RECORDS SUMMARY | 2025-05-09 09:10 | XMS_ITS | Continuity of Care Document ---
Author Organization [facility] Address [address] [place] [address] Phone Care Team Providers Care Rod Placer Name Role Phone Susan Chow Unavailable Unavailable Procedures Procedure Date Office/outpatient Visit, Est Post-op Follow-up Visit Post-op Follow-up Visit Post-op Follow-up Visit Remove Cataract, Insert Lens Eye Exam & Treatment IOLMaster Cataract Kit SEC [facility] Medical Eye Exam Established Pt Progressive Lens, Plastic Frames Deluxe Tint Photochromatic, Plastic Tax - Medical Eye Exam & Treatment Refraction Eye Exam & Treatment Refraction Eye Exam & Treatment Refraction Advance Directives Directive Yes / No Effective Date File Name No Information Encounters Encounter Description Practice Location Reason(s) For Visit Diagnoses Date Provider Providers Copied on Encounter Office/outpat ient Visit, Est [facility], [address], [place], [place], [address], [place] tel:[phone] [facility] No Information 2-201 0 Claudine Davis. [address] , [address], [place], [address], [place]. tel:[phone] Referring Provider: Susan Blandon, [address], [place], [place], [facility]. tel:[phone] [facility], [address], [place], [place], [id number], tel:[phone] [facility] No Information Apr-0 6-201 0 Claudine Davis. [address] , [address], [place], [place], [facility], [place]. tel:[phone] [facility], [address] [place] [address] [address], [place], [place], [id number], tel:[phone] [facility] No Information Mar-1 6-201 0 Claudine Davis. [address] , [address], [place], [place], [facility], . tel:[phone] [facility], [address] [place] [address] [address], [place], [place], [address], tel:[phone] [facility] No Information Mar-0 4-201 0 Solorzano OD Geremias. [address] , [address], [place], [place], [facility], . tel:[phone] [facility], [address], [place], [place], [address], tel:[phone] [facility] No Information Mar-0 3-201 0 Claudine Davis. [address] , [address], [place], [place], [facility], [place]. tel:[phone] [facility], [address] [place] [address] [address], [place], [place], [address], tel:[phone] [facility] No Information Feb-2 3-201 0 Claudine Davis. [address] , [address], [place], [place], [facility], [place]. tel:[phone] Referring Provider: Susan Blandon, [address], [place], [address]. tel:[phone] [facility], [address], [place], [place], [address], [place] tel:[phone] [facility] No Information 8[address] Claudine Davis. [address] , [address], [place], [place], [facility], [place]. tel:[phone] [facility], [address], [place], [place], [address], [place] tel:[phone] [facility] No Information 9 [employer] . [address], [address], [place], [place], [address], [place]. tel:[phone] Referring Provider: Susan Blandon, [facility], [place], [place], [facility]. tel:[phone] sulting Provider: Kendell Stroud, [address], [place], [address]. tel:[phone] [facility], [address], [place], [place], [address], [place] tel:[phone] [facility] No Information 0200 9 Claudine Davis. [facility] , [address], [place], [address], [place]. tel:[phone] [facility], [address], [place], [place], [address], [place] tel:[phone] [facility] No Information 2-200 8 Claudine Davis. [address] , [address], [place], [address], [place]. tel:[phone] [facility], [address], [place], [place], [address], [place] tel:[phone] [facility] No Information 9-200 7 Claudine Davis. [address], [place], [address], [place]. tel:[phone] Family History Family Member Type Diagnosis Age At Onset No Information Payers Payer name Insurance type Covered republican ID Authoriza ticharly(s) [facility] Commercial [id number] Social History Type Description Quantity Date Captured Comments Sex Male Smoking Status No Information Chief Complaint And Reason For Visit No Information Reason For Referral Reason For Referral No Information History Of Present Illness Encounter Date Complaint History Of Prese nt Illness No Information Functional Status Date Functional Assessmen t No Information Instructions Date Instruction Additional Infor mation No Information Assessments Type Assessment Date No Information Patient Care Teams Name Effective Dates (start - stop) Status Members No Information
== END 2025-05-09 09:07 | disposition home or self-care (01) ==
PROVIDERS: PCP Family Medicine; Visit Provider Family Medicine
DX: I71.40 Abdominal aortic aneurysm, without rupture, unspecified (principal)
CPT/HCPCS: 76775